=== PATIENT | male | born 1960 | race Caucasian/White ===

== ENCOUNTER 2024-03-17 01:02 | Inpatient (IN) | payer MEDICAID, SELFPAY ==
[2024-03-17] VITALS (11 sets, daily range): BP systolic 105–162; BP diastolic 74–98; PULSE 74–98; RESP 12–91; TEMP 36.1–36.7; O2SAT 93–97; BMI 35.9
--- NOTE | 2024-03-17 01:46 | PC.NURSE ---
patient brought in today by ambulance for near syncopal episode that occurred around 1230 states she witnessed the syncopal episode. states patient sat up and just stared blankly for 1 minute and fell back onto bed.
[2024-03-17 03:01] LABS: Basophils # (Auto) 0.1 Thou/mm3 (0.0-0.2); Basophils % (Auto) 1 % (0-2.5); Eosinophils # (Auto) 0.1 Thou/mm3 (0.0-0.5); Eosinophils % (Auto) 1 % (0-10); Hematocrit 47.6 % (41.0-53.0); Hemoglobin 16.1 g/dL (13.5-16.0); Immature Granulocytes % (Auto) 0 % (0-0); Immature Granulocytes Auto 0.02 Thou/mm3 (0.00-0.00); Lymphocytes # (Auto) 1.6 Thou/mm3 (1.0-4.8); Lymphocytes % (Auto) 21 % (10-50); Mean Corpuscular HGB Conc 33.8 g/dl (31.0-37.0); Mean Corpuscular Volume 83 fL (80-100); Monocytes # (Auto) 0.9 Thou/mm3 (0.0-0.8); Monocytes % (Auto) 12 % (0-12); Neutrophils % (Auto) 65 % (37-80); Nucleated Red Blood Cell % 0 /100 WBC (0); Platelet Count 220 Thou/mm3 (140-440); RDW Standard Deviation 43.3 fL (35.1-43.9); Red Blood Count 5.74 Miln/mm3 (4.50-5.90); White Blood Count 7.7 Thou/mm3 (3.8-10.6)
[2024-03-17 03:24] LABS: B-Type Natriuretic Peptide < 20 pg/mL (0-100)
[2024-03-17 03:25] LABS: Alanine Aminotransferase 14 U/L (10-49); Albumin, Serum 4.9 gm/dL (3.4-4.8); Albumin/Globulin Ratio 1.6 (1.2-2.2); Alkaline Phosphatase 106 U/L (46-116); Anion Gap 10 (7-16); Aspartate Amino Transferase 14 U/L (0-34); BUN/Creatinine Ratio 32 Ratio (12-20); Bilirubin,Total 0.5 mg/dL (0.3-1.2); Blood Urea Nitrogen 79 mg/dL (9-23); Calcium 10.1 mg/dL (8.3-10.6); Calcium (Corrected) 10.1 mg/dL (8.5-10.1); Carbon Dioxide 33.4 mMol/L (20.0-31.0); Chloride 81 mMol/L (98-107); Creatinine (Component) 2.5 mg/dL (0.6-1.3); Estimated Creatinine Clearance 42.8 mL/min (>60); Globulin 3.1 gm/dL (2.3-3.5); Glucose 333 mg/dL (74-106); Osmolality,Calculated 286 (275-295); Potassium 3.5 mMol/L (3.4-5.1); Sodium 124 mMol/L (136-145); Troponin I < 0.020 ng/mL (0.0-0.045); eGFR 28 See Note
--- NOTE | 2024-03-17 04:35 | EDNOTE_ITS ---
ED Syncope RME/HPI General Chief Complaint: Syncope / Near Syncope Stated Complaint: SYNCOPAL EPISODE Time Seen by Provider: 03/17/24 02:36 Arrival date/time: 03/17/24 01:02 Limitations: no limitations RME / HPI RME / HPI narrative: Dr. Calero's Main ED Evaluation: 63yo male with pmhx HTN, HLD, aFib on Eliquis, DM, CHF BIBA from home presents to the ED for a chief complaint of near syncope while sitting on the bed. Family () states the patient was staring off while he was sitting on his bed, reporting it lasted for 5-10 minutes and he passed out. Patient states he's been having bloody diarrhea for the last 4 days. He denies any fever, chills, UTI symptoms, nausea, vomiting or any other associated symptoms. No known allergies. He saw his PCP 2-3 weeks ago and had postive blood in his stool and needed a colonscopy . Related Data Allergies Allergy/AdvReac Type Severity Reaction Status Date / Time No Known Allergies Allergy Verified 10/12/23 12:58 Review of Systems Review of Systems Systems Reviewed: All systems reviewed, normal except as documented ED Exam General Limitations: Present no limitations General appearance: Present alert Head Head exam: Present atraumatic Eye Eye exam: Present normal appearance, PERRL and EOMI ENT ENT exam: Present normal exam, normal oropharynx, mucous membranes dry and other (tongue is dry) Neck Neck exam: Present normal inspection, full ROM and trachea midline Chest Chest inspection: Present normal inspection and symmetric chest wall rise Respiratory Respiratory exam: Present normal lung sounds bilaterally Cardiovascular Cardiovascular exam: Present regular rate, normal rhythm and normal heart sounds Abdominal Exam Abdominal exam: Present soft and normal bowel sounds; Absent rebound or mass Rectal Exam Rectal exam: Present heme (+) stool (very mildly, not bright red blood, has light brown watery stool); Absent mass Extremities Exam Extremities exam: Present normal inspection, full ROM and normal capillary refill Back Exam Back exam: Present normal inspection and full ROM Neurological Exam Neurological exam: Present alert, oriented X3 and CN II-XII intact Psychiatric Psychiatric exam: Present normal affect and normal mood Skin Skin exam: Present warm, dry, intact, normal color and other (normal cap refill) Course Course Course Narrative: 0449: Spoke with the patient's on the phone, who states the patient did pass out today and fell back on the bed. She denies any head strikes. She states this is not the first time he passed out, reporting it's been happening for the last month and a half. She states the patient has had bloody stools, dizziness, and generalized weakness for the last 4 days. She endorses the patient recently had positive outpatient hemo-occult labs and that's why he's supposed to have a colonoscopy done. Quality Measures none Orders Category Date Time Status Admit to Inpatient Status Routine Admission 03/17/24 05:57 Active Patient Condition Routine Admission 03/17/24 05:57 Ordered Bedside Blood Glucose ACHS Care 03/17/24 06:18 Active Bedside COVID-19 Antigen Test NOW Care 03/17/24 04:37 Active Bedside Influenza A&B Antigen Test NOW Care 03/17/24 04:37 Completed COVID-19 Screening Questionnaire NOW Care 03/17/24 05:41 Active Continuous Pulse Oximetry NOW Care 03/17/24 06:07 Active EKG (ED ONLY) *Do not use* NOW Care 03/17/24 02:13 Completed Miscellaneous Nursing Order NOW Care 03/17/24 06:18 Active Notify provider NEEDED Care 03/17/24 05:57 Active Obtain weight X1 Care 03/17/24 06:07 Active Sequential Compression Device QSHIFT Care 03/17/24 06:07 Active Vital Signs, Non-Routine Q4H Care 03/17/24 06:15 Ordered Vital Signs, Non-Routine Q4H Care 03/17/24 10:15 Ordered Vital Signs, Non-Routine Q4H Care 03/17/24 14:15 Ordered Vital Signs, Non-Routine Q4H Care 03/17/24 18:15 Ordered Vital Signs, Non-Routine Q4H Care 03/17/24 22:15 Ordered Consult to Gastroenterology Stat Cons 03/17/24 06:20 Ordered EKG (ED Only) Stat Exams 03/17/24 02:12 Ordered EKG (ED Only) Stat Exams 03/17/24 04:46 Stop Req A1C [Glycohemoglobin w (eAG)] Stat Lab 03/17/24 06:15 Ordered B-Type Natriuretic Peptide Stat Lab 03/17/24 02:41 Completed CBC AM DRAW Lab 03/17/24 06:15 Ordered CBC AM DRAW Lab 03/18/24 06:15 Ordered CBC AM DRAW Lab 03/19/24 06:15 Ordered CBC Stat Lab 03/17/24 02:41 Completed CMP [Comprehensive Metabolic Panel] AM DRAW Lab 03/17/24 06:10 Ordered CMP [Comprehensive Metabolic Panel] AM DRAW Lab 03/18/24 06:15 Ordered CMP [Comprehensive Metabolic Panel] AM DRAW Lab 03/19/24 06:15 Ordered Comprehensive Metabolic Panel Stat Lab 03/17/24 02:41 Completed Lipid Panel Routine Lab 03/17/24 06:10 Ordered Magnesium AM DRAW Lab 03/17/24 06:10 Ordered Magnesium AM DRAW Lab 03/18/24 06:15 Ordered Magnesium AM DRAW Lab 03/19/24 06:15 Ordered Partial Thromboplastin Time AM DRAW Lab 03/17/24 06:15 Ordered Partial Thromboplastin Time AM DRAW Lab 03/18/24 06:15 Ordered Phosphorous AM DRAW Lab 03/17/24 06:10 Ordered Phosphorous AM DRAW Lab 03/18/24 06:15 Ordered Phosphorous AM DRAW Lab 03/19/24 06:15 Ordered Prothrombin Time with INR AM DRAW Lab 03/17/24 06:15 Ordered Prothrombin Time with INR AM DRAW Lab 03/18/24 06:15 Ordered Prothrombin Time with INR AM DRAW Lab 03/19/24 06:15 Ordered Thyroid Stimulating Hormone AM DRAW Lab 03/17/24 06:10 Ordered Thyroid Stimulating Hormone AM DRAW Lab 03/18/24 06:15 Ordered Troponin I Stat Lab 03/17/24 02:41 Completed Urinalysis Stat Lab 03/17/24 02:13 Ordered Acetaminophen Tab [Tylenol Tab] Med 03/17/24 06:07 Active 650 mg PO Q6H PRN Atorvastatin Calcium [Lipitor] Med 03/17/24 09:00 Active 40 mg PO QDAY Dextrose 50% Syr [D50w Syringe Abboject] Med 03/17/24 06:18 Active 25 ml IV Q15MIN PRN Dextrose 50% Syr [D50w Syringe Abboject] Med 03/17/24 06:18 Active 50 ml IV Q15MIN PRN Docusate Sod [Colace] Med 03/17/24 09:00 Active 100 mg PO BID Ezetimibe [Zetia] Med 03/17/24 09:00 Active 10 mg PO QDAY Glucagon Inj Med 03/17/24 06:18 Active 1 mg IM Q15MIN PRN HYDROcodone*/APAP 5/325 [[place] 5/325] Med 03/17/24 06:07 Active 1 tab PO Q4HR PRN INSULIN LISPRO (AdmeLOG) [HumaLOG] Med 03/17/24 07:30 Active See Protocol SC ACHS Ondansetron Inj [Zofran Inj] Med 03/17/24 06:07 Active 4 mg IV Q6H PRN Pantoprazole [Protonix] Med 03/17/24 09:00 Active 40 mg PO QDAY Patient's Own Med [Patient's Own Medication] Med 03/17/24 06:15 Discontinued 20 ea PO X1 ONE Senna [Senokot] Med 03/17/24 06:07 Active 1 tab PO QDAY PRN Sodium Chloride 0.9% 1000 ml [Ns] 1,000 ml Med 03/17/24 04:37 Discontinued IV 999 mls/hr Code Status Routine Oth 03/17/24 05:57 Ordered Oxygen Delivery NOW RT 03/17/24 06:08 Active Vital Signs Vital signs: Vital Signs Temperature 98.1 F 03/17/24 01:32 Pulse Rate 74 03/17/24 01:32 Respiratory Rate 18 03/17/24 01:32 Blood Pressure 142/74 H 03/17/24 01:32 Pulse Oximetry (%) 97 03/17/24 01:32 Oxygen Delivery Method Room Air 03/17/24 01:32 Syncope Patient data External records reviewed:: [facility] previous records (Per chart review, patient has no relevant previous ED visits.) Clinical information provided by:: patient and family Social determinants that could affect healthcare access:: none Patient has the following chronic illnesses:: HTN, DM, HLD, aFib, CHF How is presenting disease/condition affected by chronic disease/condition?: uneffected by Evaluation data The following diagnostics were reviewed and interpreted by me:: lab results and EKG tracing(s) Lab and/or radiology exams considered but not ordered:: none Interpretation Summary: CBC is normal, Sodium is low at 124, Creatinine is elevated at 2.5, Glucose is elevated at 333, troponin is normal, BNP is normal, according to my interpretation. EKG done at 0224, aFib, rate of 90, ST-T wave changes in V5 and V6, QTc: 413, according to my interpretation. Medications / Prescriptions Medications or Prescriptions considered but not ordered:: none Medication administrations:: Medication Administration History Acetaminophen (Acetaminophen 325 Mg Tablet) 650 mg PO Q6H PRN PRN Reason: Fever >101.5 or pain 1-3 Stop: 04/16/24 06:06 Hydrocodone Bitart/Acetaminophen (Hydrocodone/Apap 5/325 Tablet) 1 tab PO Q4HR PRN PRN Reason: PAIN SCALE 4-6 (Moderate Stop: 03/22/24 06:06 Atorvastatin Calcium (Atorvastatin Calcium 10 Mg Tablet) 40 mg PO QDAY [facility] Stop: 04/16/24 08:59 Dextrose (Dextrose 50%-Water Inj 50 Ml Syringe) 25 ml IV Q15MIN PRN PRN Reason: BG 50-70 responsive npo pt Stop: 04/16/24 06:17 Dextrose (Dextrose 50%-Water Inj 50 Ml Syringe) 50 ml IV Q15MIN PRN PRN Reason: BG <50 OR BG <70 & pt unresponsive Stop: 04/16/24 06:17 Docusate Sodium (Docusate Sod 100 Mg Capsule) 100 mg PO BID [facility]; Protocol Stop: 04/16/24 08:59 Ezetimibe (Ezetimibe 10 Mg Tablet) 10 mg PO QDAY [facility] Stop: 04/16/24 08:59 Glucagon (Glucagon Inj 1 Mg Vial) 1 mg IM Q15MIN PRN PRN Reason: BG <70, and no IV access Insulin Human Lispro (Insulin Lispro (Admelog) 1 Unit/0.01 Ml Unit) 0 unit SC [facility]; Protocol Stop: 04/16/24 07:29 Ondansetron HCl (Ondansetron Inj 2 Mg/Ml Inj 2 Ml) 4 mg IV Q6H PRN; Protocol PRN Reason: NAUSEA OR VOMITING Stop: 04/16/24 06:06 Pantoprazole Sodium (Pantoprazole 40 Mg Tablet) 40 mg PO QDAY [facility] Stop: 04/16/24 08:59 Sennosides (Senna Tablet) 1 tab PO QDAY PRN; Protocol PRN Reason: constipation Stop: 04/16/24 06:06 Discontinued Medications Sodium Chloride (Ns) 1,000 mls @ 999 mls/hr IV .Q1H1M ONE Stop: 03/17/24 05:37 Last Admin: 03/17/24 04:39 Dose: 999 mls/hr Documented By: EF Patient Own Medication (Patient's Own Med 1 Ea Ea) 20 ea PO X1 ONE Stop: 03/17/24 06:16 see above Consultations Consultation(s) initiated? (list below): Yes Consultation #1 (Physician, Specialty, Details): Discussed case with [the resident physician, attending Dr. Elias] from Hospitalist service regarding admission. Discussed patients ED course, exam findings, labs, and radiology results. The Hospitalist [agrees] to accept the patient for admission. States they will consult with Dr. Romeo. Time: 05:06 Diagnosis Syncope Differential Diagnosis: vasovagal syncope, dehydration and other (electrolyte abnormality, lower GI bleed) Most likely diagnosis given after review of the tests above:: see below Admission Indicated Admission indicated?: indicated Explain why admission is indicated or not indicated:: Syncope with low GI bleed, new syncope while on blood thinner. Discussed with the medicine resident, and they will consult Dr. Romeo. Admission Request Was there a request for admission?: Yes Admission Attestation Admission request attestation: Discussed case with [] from Hospitalist service regarding admission. Discussed patients ED course, exam findings, labs, and radiology results. The Hospitalist [agrees,declines] to accept the patient for admission. Disposition Plan Disposition Plan: Admit Discharge Plan Prescriptions/Referrals Referrals: Chelsea Hirsch FNP [Primary Care Provider] - In 1 week Problem List Clinical Impression: Syncope, Acute lower GI hemorrhage Patient/Caregiver Discharge Instructions Print Language: Sami
[2024-03-17] MEDS: SODIUM CHLORIDE 0.9% 1000 ML 1,000 ML 999 ML IV (04:39)
[2024-03-17 06:44] LABS: Basophils % (Auto) 1 % (0-2.5); Eosinophils # (Auto) 0.1 Thou/mm3 (0.0-0.5); Eosinophils % (Auto) 1 % (0-10); Hematocrit 45.5 % (41.0-53.0); Hemoglobin 15.4 g/dL (13.5-16.0); Immature Granulocytes % (Auto) 0 % (0-0); Immature Granulocytes Auto 0.02 Thou/mm3 (0.00-0.00); Lymphocytes # (Auto) 1.9 Thou/mm3 (1.0-4.8); Lymphocytes % (Auto) 26 % (10-50); Mean Corpuscular HGB Conc 33.8 g/dl (31.0-37.0); Mean Corpuscular Hemoglobin 27.7 pg (25.0-35.0); Mean Corpuscular Volume 82 fL (80-100); Monocytes % (Auto) 14 % (0-12); Neutrophils # (Auto) 4.5 Thou/mm3 (1.8-7.7); Neutrophils % (Auto) 59 % (37-80); Nucleated Red Blood Cell % 0 /100 WBC (0); Platelet Count 245 Thou/mm3 (140-440); RDW Standard Deviation 43.2 fL (35.1-43.9); Red Blood Count 5.55 Miln/mm3 (4.50-5.90); White Blood Count 7.6 Thou/mm3 (3.8-10.6)
[2024-03-17 07:09] LABS: Partial Thromboplastin Time 27.3 Seconds (22.0-36.0); Prothrombin Time 10.9 Seconds (9.0-12.2)
[2024-03-17 07:18] LABS: Alanine Aminotransferase 14 U/L (10-49); Albumin, Serum 4.6 gm/dL (3.4-4.8); Albumin/Globulin Ratio 1.6 (1.2-2.2); Alkaline Phosphatase 99 U/L (46-116); Anion Gap 8 (7-16); Aspartate Amino Transferase < 8 U/L (0-34); BUN/Creatinine Ratio 36 Ratio (12-20); Bilirubin,Total 0.5 mg/dL (0.3-1.2); Blood Urea Nitrogen 83 mg/dL (9-23); Calcium 9.6 mg/dL (8.3-10.6); Calcium (Corrected) 9.6 mg/dL (8.5-10.1); Carbon Dioxide 35.1 mMol/L (20.0-31.0); Cardiac Risk Estimate 5.3 RATIO (4.0-6.7); Chloride 83 mMol/L (98-107); Cholesterol 144 mg/dL (132-200); Creatinine (Component) 2.3 mg/dL (0.6-1.3); Estimated Creatinine Clearance 46.6 mL/min (>60); Globulin 2.9 gm/dL (2.3-3.5); Glucose 298 mg/dL (74-106); HDL Cholesterol 27 mg/dL (40-60); LDL Cholesterol,Calculated 57 mg/dL (0-130); Magnesium 2.6 mg/dL (1.6-2.6); Osmolality,Calculated 289 (275-295); Phosphorous 4.5 mg/dL (2.4-5.1); Sodium 126 mMol/L (136-145); Thyroid Stimulating Hormone 0.99 uIU/mL (0.55-4.78); Total Protein 7.5 gm/dL (5.7-8.2); Triglycerides 298 mg/dL (30-150); eGFR 31 See Note
--- NOTE | 2024-03-17 07:25 | PD.RESHP ---
Documentation for date of: 03/17/24 HPI History of Present Illness History of present illness: Sai is a 63 y/o male with PMHx HTN, hyperlipidemia, A-fib (on Eliquis), rxm-unxrvby-lwxcpecno diabetes mellitus, CHF who was brought in for an evaluation of syncope, and bloody diarrhea, onset past 4 days, syncopal episode was a day and a half ago and was unremembered. Patient's had said that patient has been experiencing some bloody stools for a while now, and was supposed to get an outpatient colonoscopy. However 4 days ago patient started to experience bloody diarrhea as well. Patient also said that he had episode of nonbloody vomiting. When patient was asked upon the syncopal episode, he does not remember what happened, but says that he has been feeling more weak lately, but with no associated blurry vision headache. Says that he gets more dizzy upon while getting up however he is pretty much wheelchair bound for about a year now due to his spinal stenosis. He also says that he has new kidney disease as well. Denies any chest pain, shortness of breath, constipation or other further symptoms. ED course: Patient arrived to the ED with unremarkable vitals. Patient was worked up and was found to have a blood sugar of 333, sodium of 124, potassium 3.5, chloride of 81, bicarb of 33, BUN/creatinine of 79 and 2.5, hemoglobin of 16.1. FOBT was done on patient and was positive. Patient was given 1 L bolus and medicine was consulted and patient was admitted to floors for further evaluation of syncope and GI bleed. Past medical history: As above Surgeries: Foot surgery Allergies: No known allergies Meds: Lipitor, Eliquis, aspirin, and Eztemibe, Kerendia, Coreg, Social history: Has smoking history, drinks occasionally. Lives with Review of Systems Review of Systems Narrative Review of Systems: 12 point ROS reviewed and stabilized negative unless stated in the HPI Exam Vital Signs Temp Pulse Resp BP Pulse Ox O2 Del Method 97.8 F 88 20 130/82 97 Room Air 03/17/24 04:03 03/17/24 07:19 03/17/24 07:19 03/17/24 06:03 03/17/24 06:03 03/17/24 06:03 Narrative Exam General: AAOx3, NAD, obese male HEENT: Dry mucous membranes, conjunctiva clear, EOMI, PERRLA, Cardiovascular: S1, S2, radial pulses +2 bilat, RRR Pulmonary: CTAB bilat no cough, no wheezing GI: No tenderness to light or deep palpitation, no guarding, rigidity, rebound tenderness or distension Extremities: No presence of trace or pitting edema in lower extremities bilaterally, dorsalis pedis pulses +2 bilaterally, Neuro: AAOx3, no focal motor or sensory deficits in the UE or LE bilat Psych: Good judgement, thought and behavior. Cooperative Results: Labs 03/17/24 06:35 03/17/24 06:35 Labs: Short CBC 03/17/24 03/17/24 Range/Units 02:41 06:35 WBC 7.7 7.6 (3.8-10.6) Thou/mm3 Hgb 16.1 H 15.4 (13.5-16.0) g/dL Hct 47.6 45.5 (41.0-53.0) % Plt Count 220 245 (140-440) Thou/mm3 BMP 03/17/24 03/17/24 02:41 06:35 Sodium 124 L 126 L Potassium 3.5 3.0 L D Chloride 81 L 83 L Carbon Dioxide 33.4 H 35.1 H BUN 79 H 83 H Creatinine 2.5 H 2.3 H Glucose 333 H 298 H Calcium 10.1 9.6 Cardiac Enzymes 03/17/24 Range/Units 02:41 Troponin I < 0.020 (0.0-0.045) ng/mL Liver Function 03/17/24 03/17/24 Range/Units 02:41 06:35 Total Bilirubin 0.5 0.5 (0.3-1.2) mg/dL AST 14 < 8 (0-34) U/L ALT 14 14 (10-49) U/L Alkaline Phosphatase 106 99 (46-116) U/L Albumin 4.9 H 4.6 (3.4-4.8) gm/dL Quality Measures Quality Measures none Medications Home Medications and Allergies Allergies Allergy/AdvReac Type Severity Reaction Status Date / Time No Known Allergies Allergy Verified 10/12/23 12:58 Visit Medications Acetaminophen (Acetaminophen 325 Mg Tablet) 650 mg PO Q6H PRN PRN Reason: Fever >101.5 or pain 1-3 Stop: 04/16/24 06:06 Hydrocodone Bitart/Acetaminophen (Hydrocodone/Apap 5/325 Tablet) 1 tab PO Q4HR PRN PRN Reason: PAIN SCALE 4-6 (Moderate Stop: 03/22/24 06:06 Atorvastatin Calcium (Atorvastatin Calcium 10 Mg Tablet) 40 mg PO QDAY [facility] Stop: 04/16/24 08:59 Dextrose (Dextrose 50%-Water Inj 50 Ml Syringe) 25 ml IV Q15MIN PRN PRN Reason: BG 50-70 responsive npo pt Stop: 04/16/24 06:17 Dextrose (Dextrose 50%-Water Inj 50 Ml Syringe) 50 ml IV Q15MIN PRN PRN Reason: BG <50 OR BG <70 & pt unresponsive Stop: 04/16/24 06:17 Docusate Sodium (Docusate Sod 100 Mg Capsule) 100 mg PO BID [facility]; Protocol Stop: 04/16/24 08:59 Ezetimibe (Ezetimibe 10 Mg Tablet) 10 mg PO QDAY [facility] Stop: 04/16/24 08:59 Glucagon (Glucagon Inj 1 Mg Vial) 1 mg IM Q15MIN PRN PRN Reason: BG <70, and no IV access Insulin Human Lispro (Insulin Lispro (Admelog) 1 Unit/0.01 Ml Unit) 0 unit SC [facility]; Protocol Stop: 04/16/24 07:29 Ondansetron HCl (Ondansetron Inj 2 Mg/Ml Inj 2 Ml) 4 mg IV Q6H PRN; Protocol PRN Reason: NAUSEA OR VOMITING Stop: 04/16/24 06:06 Pantoprazole Sodium (Pantoprazole 40 Mg Tablet) 40 mg PO QDAY [facility] Stop: 04/16/24 08:59 Sennosides (Senna Tablet) 1 tab PO QDAY PRN; Protocol PRN Reason: constipation Stop: 04/16/24 06:06 Discontinued Medications Sodium Chloride (Ns) 1,000 mls @ 999 mls/hr IV .Q1H1M ONE Stop: 03/17/24 05:37 Last Admin: 03/17/24 04:39 Dose: 999 mls/hr Patient Own Medication (Patient's Own Med 1 Ea Ea) 20 ea PO X1 ONE Stop: 03/17/24 06:16 Assessment & Plan Plan Assessment Sai is a 63 y/o male with PMHx HTN, hyperlipidemia, A-fib (on Eliquis), azt-bybdmwc-uwzlxbnnz diabetes mellitus, CHF who is admitted for syncope and GI bleed. #Syncope Patient does not recall having syncopal episode Could be related due to dizziness, autonomic component Could be due to hypovolemia Plan: ? Follow-up orthostatic vitals ? Consider neurology consult ? Bedrest ?Consider PT referral #GI bleed Hemoglobin of ~16 Has been having bloody bowel movements for some time now, was supposed to get outpatient colonoscopy Patient's anemia at this time however recently had syncope may be related Will further workup May be infectious may be hemorrhoids Plan: ? GI consulted, appreciate recs ?Transfusion protocol below 7 ? Protonix daily ? SCDs #FAUZIA Likely prerenal due to GI losses Status post 1 L bolus in ER Plan: ?Consider starting fluids ?Avoid nephrotoxic agents ?Renally dose medicines #Electrolyte abnormalities #Hyponatremia #Hypochloremia #Metabolic alkalosis Secondary to GI losses Patient was given 1 L bolus in the ER Plan: ?Consider starting fluids ?Replete as needed #Hx of A-fib On Eliquis CHADVASC of 3 Plan: ? Holding Eliquis in setting of GI bleed ? Consider cardiology consult #History of hypertension #History of hyperlipidemia Plan: ? Awaiting med rec ?Resumed home Ezetimibe and Lipitor #History of jyh-nawzytt-dfoqqrikf diabetes mellitus Plan: ? A1c ? SSI #Health Maintenance Disposition: Telemetry DVT prophylaxis: SCDs GI prophylaxis: Protonix Diet: Carb consistent CODE STATUS: Full Patient seen and care discussed with my attending physician, Dr. Curt Rodriguez, PGY-1
[2024-03-17] MEDS: HYDROcodone/APAP 5/325 TABLET 1 TAB PO ×3 (07:35→20:50)
[2024-03-17 07:37] LABS: Glucose Estimated Average 306 mg/dL (80-131); Hemoglobin A1C 12.3 % Hgb (4.8-6.0)
[2024-03-17] MEDS: PANTOPRAZOLE 40 MG TABLET PO (09:16)
[2024-03-17] MEDS: EZETIMIBE 10 MG TABLET PO (11:21)
[2024-03-17] MEDS: ATORVASTATIN CALCIUM 20 MG TABLET 40 MG PO (11:21)
[2024-03-17] MEDS: ONDANSETRON INJ 2 MG/ML INJ 2 ML 4 MG IV (11:21)
[2024-03-17] MEDS: POTASSIUM CHLORIDE 20 mEq TABCR 40 MEQ PO ×2 (12:29→16:14)
[2024-03-17] MEDS: INSULIN GLARGINE (Lantus) 5 UNIT/0.05 ML (PER 5 UNITS) 15 UNIT SC (12:43)
[2024-03-17] MEDS: INSULIN LISPRO (AdmeLOG) 1 UNIT/0.01 ML UNIT SC ×3 (12:46→20:53)
[2024-03-17] MEDS: KERENDIA 20 MG PO (12:51)
--- NOTE | 2024-03-17 13:36 | PC.CC ---
Patient is a 63 year-old male who presents to the hospital for GI Bleed. Patt GOSS made ejny-ty-aucs contact with patient. ASW introduced self, role, and reason for visit. Patient appeared alert and oriented to self, location, and situation. Patient was pleasant and engaged in initial assessment. Patient confirmed information on demographics and reports he lives with his , Lillian Ortiz . Patient stated that should something happen and is unable to make his own decisions his medical decision maker is his . At home patient relys completely on his to help him with his ADLs. The patient stated, I am completely crippled. At home patient uses a wheelchair. Patient receives primary care with Chelsea Hirsch and for prescription medication he uses [facility]. Upon discharge patient plans to return back home with his . building services supervisor to follow up with any discharge needs.
--- NOTE | 2024-03-17 13:52 | ECHO_ITS ---
Transthoracic Echo Report Ht (in): 74 Wt (lb): 280 Exam Location: [facility] Status: Inpatient Civil Preparedness Training Officer: Lin Maldonado Indications: Procedure Performed: BP: 146 / 80 HR: 85 Technical Quality: Fair MEASUREMENTS (Male / Female) Normal Values 2D ECHO LV Diastolic Diameter PLAX 4.5 cm 4.2 - 5.9 / 3.9 - 5.3 cm LV Systolic Diameter PLAX 3.1 cm IVS Diastolic Thickness 1.1 cm 0.6 - 1.0 / 0.6 - 0.9 cm LVPW Diastolic Thickness 1.1 cm 0.6 - 1.0 / 0.6 - 0.9 cm LV Relative Wall Thickness 0.5 LVOT Diameter 2.2 cm LA Volume Index 30.2 cm?/m? 16 - 28 cm?/m? Ascending Aorta Diameter 4.1 cm M-MODE Aortic Root Diameter MM 2.7 cm LA Systolic Diameter MM 4.8 cm LA Ao Ratio MM 1.8 AV Cusp Separation MM 2.0 cm DOPPLER AV Peak Velocity 123.0 cm/s AV Peak Gradient 6.1 mmHg AV Mean Gradient 4.0 mmHg AV Velocity Time Integral 17.7 cm LVOT Peak Velocity 81.3 cm/s LVOT Peak Gradient 2.6 mmHg LVOT Velocity Time Integral 15.3 cm LVOT Cardiac Index 1888.9 cm?/min?m? AV Area Cont Eq vti 3.3 cm? AV Area Cont Eq pk 2.5 cm? MV Peak Velocity 118.0 cm/s MV Peak Gradient 5.6 mmHg MV Mean Velocity 67.9 cm/s MV Mean Gradient 2.0 mmHg MV Area PHT 4.0 cm? Mitral E Point Velocity 82.5 cm/s Mitral A Point Velocity 2.4 cm/s Mitral E to A Ratio 34.0 LV E' Lateral Velocity 10.3 cm/s Mitral E to LV E' Lateral Ratio 8.0 LV E' Septal Velocity 9.4 cm/s Mitral E to LV E' Septal Ratio 8.8 FINDINGS Left Ventricle Normal left ventricular size, systolic function with no obvious regional wall motion abnormalities. Mild LVH. The ejection fraction is visually estimated at 60-65%. Right Ventricle The right ventricle is normal in size and systolic function. Left Atrium The left atrium is normal by two-dimensional, color flow and Doppler imaging with no structural abnormalities, no thrombus formation present. Right Atrium The right atrium is normal by two-dimensional imaging, color flow and Doppler imaging with no struct ural abnormalities, no thrombus formation present. Atrial Septum The interatrial septum appears normal with no evidence of a shunt. Aorta The aorta is normal by two-dimensional, color flow and Doppler interrogation. Mitral Valve The mitral valve is normal by two-dimensional, color flow and Doppler interrogation. There is no sig nificant mitral valve regurgitation. Aortic Valve The aortic valve is trileaflet. Mild sclerosis without stenosis. There is no significant aortic valv e regurgitation. Tricuspid Valve The tricuspid valve is normal by two-dimensional, color flow and Doppler interrogation. There is tra ce tricuspid valve regurgitation. Pulmonic Valve There is no significant pulmonic valve regurgitation. Vessels The pulmonary artery appears normal. The inferior vena cava pulmonary and hepatic veins appear mary l. Pericardium The pericardium is normal by two-dimensional imaging. There is no significant pericardial effusion. CONCLUSIONS Normal LV size and function. Mild LVH. Estimated EF 60-65% Normal RV size and function Mild AV sclerosis without stenosis. Trace TR. Mary Brown (Electronically Signed) Final Date: 20 March 2024 15:23
[2024-03-17] MEDS: SODIUM CHLORIDE 0.9% 500 ML 500 ML 999 ML IV (16:15)
[2024-03-17 16:40] LABS: Collection Type, Urine Clean Catch
[2024-03-17 17:02] LABS: Bilirubin,Urine Negative (Negative); Blood,Urine Negative (Negative); Clarity,Urine Clear (Clear/Hazy); Color,Urine Lt-Yellow (Lt Yel-Yel); Glucose, Urine 4+ (Negative); Ketones,Urine Negative (Negative); Leukocyte Esterase,Urine Negative (Negative); Nitrite,Urine Negative (Negative); Protein,Urine Trace (Neg - Trace); RBC,Urine 1 /hpf (0-3); Specific Gravity,Urine 1.023 (1.001-1.035); Squamous Epithelial Cell,Urine 1 /hpf (0-5); Urobilinogen,Urine Negative mg/dL (0.0-1.0); WBC,Urine < 1 /hpf (0-5)
--- NOTE | 2024-03-17 17:18 | ESCONSULT_ITS ---
HPI Data of Consult Requesting Physician: Marcus Elias MD Primary Care Provider: ZACKERY Negrete Consult Narrative Reason for consult: Syncope bloody stools History of present illness: 63 years old male evaluated at the request of the ER physician and the internal medicine team for the last few days has been having bloody stools Rectal examination in the emergency room was Hemoccult positive Patient was brought in by ambulance because he had a near syncope at home Patient does have a history of hypertension hyperlipidemia atrial fibrillation diabetes mellitus and congestive heart failure And currently on blood thinners cc:: cc: Marcus Elias MD Review of Systems Review of Systems Systems Reviewed: All systems reviewed, normal except as documented Past Medical History Surgical History OTHER SURGICAL HX: As in the history of present illness Meds Home Medications and Allergies Allergies Allergy/AdvReac Type Severity Reaction Status Date / Time No Known Allergies Allergy Verified 10/12/23 12:58 Exam Vital Signs Temp Pulse Resp BP Pulse Ox O2 Del Method 98.0 F 88 19 162/89 H 94 L Room Air 03/17/24 15:24 03/17/24 15:24 03/17/24 15:24 03/17/24 15:24 03/17/24 15:24 03/17/24 15:24 Constitutional Comments: Alert oriented Routine Respiratory Exam Comments: Normal to auscultation Routine Abdominal Exam Comments: Soft nontender Results Labs 03/17/24 06:35 03/17/24 06:35 Labs: Short CBC 03/17/24 03/17/24 Range/Units 02:41 06:35 WBC 7.7 7.6 (3.8-10.6) Thou/mm3 Hgb 16.1 H 15.4 (13.5-16.0) g/dL Hct 47.6 45.5 (41.0-53.0) % Plt Count 220 245 (140-440) Thou/mm3 BMP 03/17/24 03/17/24 02:41 06:35 Sodium 124 L 126 L Potassium 3.5 3.0 L D Chloride 81 L 83 L Carbon Dioxide 33.4 H 35.1 H BUN 79 H 83 H Creatinine 2.5 H 2.3 H Glucose 333 H 298 H Calcium 10.1 9.6 Cardiac Enzymes 03/17/24 Range/Units 02:41 Troponin I < 0.020 (0.0-0.045) ng/mL Liver Function 03/17/24 03/17/24 Range/Units 02:41 06:35 Total Bilirubin 0.5 0.5 (0.3-1.2) mg/dL AST 14 < 8 (0-34) U/L ALT 14 14 (10-49) U/L Alkaline Phosphatase 106 99 (46-116) U/L Albumin 4.9 H 4.6 (3.4-4.8) gm/dL Urine 03/17/24 Range/Units 16:14 Urine Color Lt-Yellow (Lt Yel-Yel) Urine Clarity Clear (Clear/Hazy) Urine pH 6.0 (5.0-7.0) Ur Specific [place] 1.023 (1.001-1.035) Urine Protein Trace (Neg - Trace) Urine Glucose (UA) 4+ A (Negative) Assessment and Plan Additional Assessment & Plan Additional Plan: # Hematochezia Plan Stool culture and sensitivity and stool C. difficile Clear liquid diet GoLytely prep Consent obtained for fiberoptic colonoscopy with possible biopsy possible therapeutic intervention under intravenous moderate sedation Recommend CT scan of the abdomen pelvis with contrast Will follow the patient Other medical problems include # Essential hypertension # Hyperlipidemia # Chronic atrial fibrillation # Diabetes mellitus type 2 # Congestive heart failure Thank you very much for the opportunity to participate in the care of this patient
[2024-03-17] MEDS: INSULIN LISPRO (AdmeLOG) 1 UNIT/0.01 ML UNIT 5 UNIT SC (17:27)
--- NOTE | 2024-03-17 19:04 | PD.RESPRO ---
Documentation for date of: 03/17/24 Subjective Subjective Interval history: Patient was interviewed and examined at the bedside this morning. He reported having a rough time. He reported that he has been having amarilys red blood per rectum. Exam Vital Signs Temp Pulse Resp BP Pulse Ox O2 Del Method 98.0 F 88 19 162/89 H 94 L Room Air 03/17/24 15:24 03/17/24 15:24 03/17/24 15:24 03/17/24 15:24 03/17/24 15:24 03/17/24 15:24 Narrative Exam General: No acute distress, Alert and Oriented x 3 HEENT: Mildly dry mucous membranes, oropharynx clear Neck: Supple, No masses, No JVD CVS: S1S2 Regular rate and rhythm, No murmurs, rubs or gallops Lungs: Clear to auscultation with no accessory use, no wheeze no rhonchi Abd: Soft, NT/ND, +BS, no organomegaly Ext: No edema, warm and well perfused Skin: No rash Psych: Appropriate mood and affect Objective Labs 03/20/24 08:35 03/20/24 08:35 Labs: Laboratory Results - last 24 hr 03/17/24 03/17/24 03/17/24 02:41 06:35 16:14 WBC 7.7 7.6 RBC 5.74 5.55 Hgb 16.1 H 15.4 Hct 47.6 45.5 MCV 83 82 MCH 28.0 27.7 MCHC 33.8 33.8 RDW Std Deviation 43.3 43.2 Plt Count 220 245 Neut % (Auto) 65 59 Lymph % (Auto) 21 26 [place] % (Auto) 12 14 H Eos % (Auto) 1 1 Baso % (Auto) 1 1 Neut # (Auto) 5.0 4.5 Lymph # (Auto) 1.6 1.9 [place] # (Auto) 0.9 H 1.0 H Eos # (Auto) 0.1 0.1 Baso # (Auto) 0.1 0.0 Immature Gran # (Auto) 0.02 H 0.02 H Absolute Nucleated RBC 0.00 0.00 Immature Gran % 0 0 Nucleated RBC % 0 0 PT 10.9 INR 1.0 APTT 27.3 Sodium 124 L 126 L Potassium 3.5 3.0 L D Chloride 81 L 83 L Carbon Dioxide 33.4 H 35.1 H Anion Gap 10 8 BUN 79 H 83 H Creatinine 2.5 H 2.3 H Estim Creat Clear Calc 42.8 L 46.6 L eGFR 28 L 31 L BUN/Creatinine Ratio 32 H 36 H Glucose [address] Glu mg/dL 306 H Hemoglobin A1c 12.3 H Calculated Osmolality 286 289 Calcium 10.1 9.6 Corrected Calcium 10.1 9.6 Phosphorus 4.5 Magnesium 2.6 Total Bilirubin 0.5 0.5 AST 14 < 8 ALT 14 14 Alkaline Phosphatase 106 99 Troponin I < 0.020 B-Natriuretic Peptide < 20 Total Protein 8.0 7.5 Albumin 4.9 H 4.6 Globulin 3.1 2.9 Albumin/Globulin Ratio 1.6 1.6 Triglycerides 298 H Cholesterol 144 LDL Cholesterol, Calc 57 HDL Cholesterol 27 L Cholesterol/HDL Ratio 5.3 TSH 0.99 Ur Collection Type Clean Catch Urine Color Lt-Yellow Urine Clarity Clear Urine pH 6.0 Ur Specific [place] 1.023 Urine Protein Trace Urine Glucose (UA) 4+ A Urine Ketones Negative Urine Blood Negative Urine Nitrite Negative Urine Bilirubin Negative Urine Urobilinogen (Auto) Negative Ur Leukocyte Esterase Negative Urine RBC 1 Urine WBC < 1 Ur Squamous Epith Cells 1 Urine Bacteria None Quality Measures Quality Measures none Assessment & Plan Assessment Current Active Medications: Generic Name Dose Route Start Last Admin Trade Name Lana PRN Reason Stop Dose Admin Acetaminophen 650 mg 03/17/24 06:07 Acetaminophen 325 Mg Tablet PO 04/16/24 06:06 Q6H PRN Fever >101.5 or pain 1-3 Hydrocodone Bitart/Acetaminophen 1 tab 03/17/24 06:07 03/17/24 12:29 Hydrocodone/Apap 5/325 Tablet PO 03/22/24 06:06 1 tab Q4HR PRN Administration PAIN SCALE 4-6 (Moderate Atorvastatin Calcium 40 mg 03/17/24 10:00 03/17/24 11:21 Atorvastatin Calcium 20 Mg Tablet PO 04/16/24 08:59 40 mg QDAY JAKE Administration Dextrose 25 ml 03/17/24 06:18 Dextrose 50%-Water Inj 50 Ml Syringe IV 04/16/24 06:17 Q15MIN PRN BG 50-70 responsive npo pt Dextrose 50 ml 03/17/24 06:18 Dextrose 50%-Water Inj 50 Ml Syringe IV 04/16/24 06:17 Q15MIN PRN BG <50 OR BG <70 & pt unresponsive Docusate Sodium 100 mg 03/17/24 09:00 03/17/24 09:54 Docusate Sod 100 Mg Capsule PO 04/16/24 08:59 Not Given BID [facility] Protocol Ezetimibe 10 mg 03/17/24 09:00 03/17/24 11:21 Ezetimibe 10 Mg Tablet PO 04/16/24 08:59 10 mg QDAY JAKE Administration Glucagon 1 mg 03/17/24 06:18 Glucagon Inj 1 Mg Vial IM Q15MIN PRN BG <70, and no IV access Insulin Glargine 15 unit 03/17/24 11:00 03/17/24 12:43 Insulin Glargine (Lantus) 5 Unit/0.05 Ml (Per 5 Units) SC 04/16/24 10:59 15 unit DAILY JAKE Administration Insulin Human Lispro 0 unit 03/17/24 07:30 03/17/24 17:28 Insulin Lispro (Admelog) 1 Unit/0.01 Ml Unit SC 04/16/24 07:29 4 unit ACHS JAKE Administration Protocol Insulin Human Lispro 5 unit 03/17/24 17:30 03/17/24 17:27 Insulin Lispro (Admelog) 1 Unit/0.01 Ml Unit SC 04/16/24 17:29 5 unit TIDWM JAKE Administration Ondansetron HCl 4 mg 03/17/24 06:07 03/17/24 11:21 Ondansetron Inj 2 Mg/Ml Inj 2 Ml IV 04/16/24 06:06 4 mg Q6H PRN Administration NAUSEA OR VOMITING Protocol Pantoprazole Sodium 40 mg 03/17/24 09:00 03/17/24 09:16 Pantoprazole 40 Mg Tablet PO 04/16/24 08:59 40 mg QDAY JAKE Administration Sennosides 1 tab 03/17/24 06:07 Senna Tablet PO 04/16/24 06:06 QDAY PRN constipation Protocol Dara Sai is a 63 y/o male with PMHx HTN, hyperlipidemia, A-fib (on Eliquis), [id number] diabetes mellitus, CHF who is admitted for syncope and GI bleed. #Syncope Most likely secondary to nausea and vomiting that has been going on for past couple days leading to volume depletion, Further complicated by Lower GI bleed Patient received IV bolus fluid 1 L Plan: ? Follow-up orthostatic vitals ? Bedrest ? Consider PT referral #Lower GI bleed Hemoglobin of ~16, in the setting of volume depletion 2/2 nausea and vomiting Has been having bloody bowel movements for some time now, was supposed to get outpatient colonoscopy DDx: infectious vs hemorrhoids Plan: ?GI consulted, appreciate recs ?Transfusion protocol below 7 ?Protonix daily ? SCDs #FAUZIA Likely prerenal due to GI losses Status post 1 L bolus in ER Plan: ?Consider starting fluids ?Avoid nephrotoxic agents ?Renally dose medicines #Electrolyte abnormalities #Hyponatremia #Hypochloremia #Hypokalemia #Metabolic alkalosis Secondary to GI losses Patient was given 1 L bolus in the ER Plan: - Releted KCl ?Consider starting fluids ?Replete as needed #Hx of A-fib On Eliquis CHADVASC of 3 Plan: ? Holding Eliquis in setting of GI bleed #History of hypertension #History of hyperlipidemia Plan: ? Awaiting med rec ?Resumed home Ezetimibe and Lipitor #History of uic-pqvgyno-bmimakoij diabetes mellitus ? A1c 12.3 Plan: - Lantus 20 U daily ? SSI moderate scale ACHS - Lispro 5 units TIDWM #Health Maintenance Disposition: Telemetry DVT prophylaxis: SCDs GI prophylaxis: Protonix Diet: Carb consistent CODE STATUS: Full The patient's management plan was discussed with my attending physician DO Ernst Ariza MD, PGY2 Attending Provider Attestation/Addendum I have discussed and was present for the essential components of the history, physical examination, diagnosis, and treatment plan with the resident. I agree with the patient's care as documented by the resident and amended herein by me. Karlos Abrams DO. Although this document has been carefully reviewed, there may still be some phonetic and other typographical errors. These errors are purely grammatical due to imperfections in the software program and should not be construed in any way to compromise the substance of the patient's medical care during this visit.
[2024-03-17] MEDS: DOCUSATE SOD 100 MG CAPSULE PO (20:51)
[2024-03-17] MEDS: NA SU/NAHCO3/KC/PEG (Golytely) 4,000 ML BTL 4000 ML PO (21:39)
[2024-03-18] VITALS (22 sets, daily range): BP systolic 92–134; BP diastolic 58–90; PULSE 67–120; RESP 12–99; TEMP 36.1–36.6; O2SAT 94–99; BMI 35.9
[2024-03-18] MEDS: HYDROcodone/APAP 5/325 TABLET 1 TAB PO ×4 (02:05→20:20)
[2024-03-18 06:34] LABS: Basophils % (Auto) 1 % (0-2.5); Eosinophils # (Auto) 0.1 Thou/mm3 (0.0-0.5); Eosinophils % (Auto) 2 % (0-10); Hematocrit 44.2 % (41.0-53.0); Hemoglobin 14.8 g/dL (13.5-16.0); Immature Granulocytes % (Auto) 0 % (0-0); Immature Granulocytes Auto 0.02 Thou/mm3 (0.00-0.00); Lymphocytes # (Auto) 1.8 Thou/mm3 (1.0-4.8); Lymphocytes % (Auto) 29 % (10-50); Mean Corpuscular HGB Conc 33.5 g/dl (31.0-37.0); Mean Corpuscular Volume 84 fL (80-100); Monocytes # (Auto) 0.9 Thou/mm3 (0.0-0.8); Monocytes % (Auto) 14 % (0-12); Neutrophils # (Auto) 3.4 Thou/mm3 (1.8-7.7); Neutrophils % (Auto) 55 % (37-80); Nucleated Red Blood Cell % 0 /100 WBC (0); Platelet Count 245 Thou/mm3 (140-440); RDW Standard Deviation 43.9 fL (35.1-43.9); Red Blood Count 5.28 Miln/mm3 (4.50-5.90); White Blood Count 6.2 Thou/mm3 (3.8-10.6)
[2024-03-18 06:41] LABS: Partial Thromboplastin Time 26.2 Seconds (22.0-36.0); Prothrombin Time 10.8 Seconds (9.0-12.2)
[2024-03-18 07:00] LABS: Alanine Aminotransferase 14 U/L (10-49); Albumin, Serum 4.2 gm/dL (3.4-4.8); Albumin/Globulin Ratio 1.6 (1.2-2.2); Alkaline Phosphatase 90 U/L (46-116); Anion Gap 10 (7-16); Aspartate Amino Transferase 14 U/L (0-34); BUN/Creatinine Ratio 38 Ratio (12-20); Bilirubin,Total 0.5 mg/dL (0.3-1.2); Blood Urea Nitrogen 57 mg/dL (9-23); Calcium 9.4 mg/dL (8.3-10.6); Calcium (Corrected) 9.4 mg/dL (8.5-10.1); Carbon Dioxide 31.3 mMol/L (20.0-31.0); Chloride 88 mMol/L (98-107); Creatinine (Component) 1.5 mg/dL (0.6-1.3); Estimated Creatinine Clearance 71.4 mL/min (>60); Globulin 2.7 gm/dL (2.3-3.5); Glucose 200 mg/dL (74-106); Magnesium 2.6 mg/dL (1.6-2.6); Osmolality,Calculated 280 (275-295); Phosphorous 2.8 mg/dL (2.4-5.1); Potassium 2.8 mMol/L (3.4-5.1); Sodium 129 mMol/L (136-145); Thyroid Stimulating Hormone 0.87 uIU/mL (0.55-4.78); Total Protein 6.9 gm/dL (5.7-8.2); eGFR 52 See Note
[2024-03-18] MEDS: EZETIMIBE 10 MG TABLET PO (09:05)
[2024-03-18] MEDS: PANTOPRAZOLE 40 MG TABLET PO (09:05)
--- NOTE | 2024-03-18 10:40 | PC.NURSE ---
Called lab regarding stool culture, lab reported that specimen did not meet qualifications for C. diff and was cancelled, notified Dr. Suazo, ordered ok to remove precautions.
[2024-03-18] MEDS: ATORVASTATIN CALCIUM 20 MG TABLET 40 MG PO (10:55)
[2024-03-18] MEDS: POTASSIUM CHL 10 mEq IVPB 10 MEQ/100 ML BAG 100 MEQ IV ×4 (10:56→14:48)
--- NOTE | 2024-03-18 14:39 | ESPR_ITS ---
Documentation for date of: 03/18/24 Subjective Subjective Interval history: Patient was examined bedside this morning, he was drinking his GoLytely. C. difficile was canceled by lab because of stool consistency. Pending colonoscopy tonight by Dr Romeo .wound noted in left heel . wound care ordered . Patient was extensively counseled about his diabetes and diabetic education ordered. he might need insulin on discharge . Exam Vital Signs Temp Pulse Resp BP Pulse Ox O2 Del Method 97.7 F 87 18 129/77 97 Room Air 03/18/24 12:00 03/18/24 12:00 03/18/24 12:00 03/18/24 12:00 03/18/24 12:00 03/18/24 12:00 Narrative Exam GENERAL: Comfortable adult seen resting comfortably in hospital bed, no acute distress, morbidly obese VITALS: All vitals were reviewed and the pulse ox is 98% on room air HEENT: Normocephalic, atraumatic. Pupils are equal and reactive. Oral mucosa is moist. NECK: Supple, nontender, no JVD CHEST: Symmetrical, atraumatic and with equal expansion ,Nontender on palpation CARDIOVASCULAR: Heart regular rhythm & rate. S1/S2. no murmur or gallop rub or extra beats. LUNGS: Clear to auscultation bilaterally with symmetrical chest rise. No laboring tachypnea or wheezing. No intercostal subcostal retraction. No rales and no rhonchi. ABDOMEN: Obese ,nontender to palpation, no guarding or rebound tenderness. Active and normal bowel sounds. EXTREMITIES:Moves all 4 extremities,left medial malleous diabetic ulcer NEURO: Patient is AO x 3, Cranial nerves II through XII grossly intact. There is no focal neurologic deficits noted. PSYCHIATRIC: Patient is in normal mood, cooperative, no SI or HI or hallucinations. Objective Labs 03/18/24 05:04 03/18/24 05:04 Labs: Laboratory Results - last 24 hr 03/17/24 03/18/24 03/18/24 16:14 02:00 05:04 WBC 6.2 RBC 5.28 Hgb 14.8 Hct 44.2 MCV 84 MCH 28.0 MCHC 33.5 RDW Std Deviation 43.9 Plt Count 245 Neut % (Auto) 55 Lymph % (Auto) 29 [place] % (Auto) 14 H Eos % (Auto) 2 Baso % (Auto) 1 Neut # (Auto) 3.4 Lymph # (Auto) 1.8 [place] # (Auto) 0.9 H Eos # (Auto) 0.1 Baso # (Auto) 0.0 Immature Gran # (Auto) 0.02 H Absolute Nucleated RBC 0.00 Immature Gran % 0 Nucleated RBC % 0 PT 10.8 INR 1.0 APTT 26.2 Sodium 129 L Potassium 2.8 L Chloride 88 L Carbon Dioxide 31.3 H Anion Gap 10 BUN 57 H Creatinine 1.5 H D Estim Creat Clear Calc 71.4 eGFR 52 L BUN/Creatinine Ratio 38 H Glucose 200 H D Calculated Osmolality 280 Calcium 9.4 Corrected Calcium 9.4 Phosphorus 2.8 Magnesium 2.6 Total Bilirubin 0.5 AST 14 ALT 14 Alkaline Phosphatase 90 Total Protein 6.9 Albumin 4.2 Globulin 2.7 Albumin/Globulin Ratio 1.6 TSH 0.87 Ur Collection Type Clean Catch Urine Color Lt-Yellow Urine Clarity Clear Urine pH 6.0 Ur Specific [place] 1.023 Urine Protein Trace Urine Glucose (UA) 4+ A Urine Ketones Negative Urine Blood Negative Urine Nitrite Negative Urine Bilirubin Negative Urine Urobilinogen (Auto) Negative Ur Leukocyte Esterase Negative Urine RBC 1 Urine WBC < 1 Ur Squamous Epith Cells 1 Urine Bacteria None Stl C. diff Tox B Gene Cancelled Quality Measures Quality Measures none Assessment & Plan Assessment Current Active Medications: Generic Name Dose Route Start Last Admin Trade Name Freq PRN Reason Stop Dose Admin Acetaminophen 650 mg 03/17/24 06:07 Acetaminophen 325 Mg Tablet PO 04/16/24 06:06 Q6H PRN Fever >101.5 or pain 1-3 Hydrocodone Bitart/Acetaminophen 1 tab 03/17/24 06:07 03/18/24 13:45 Hydrocodone/Apap 5/325 Tablet PO 03/22/24 06:06 1 tab Q4HR PRN Administration PAIN SCALE 4-6 (Moderate Atorvastatin Calcium 40 mg 03/17/24 10:00 03/18/24 10:55 Atorvastatin Calcium 20 Mg Tablet PO 04/16/24 08:59 40 mg QDAY JAKE Administration Dextrose 25 ml 03/17/24 06:18 Dextrose 50%-Water Inj 50 Ml Syringe IV 04/16/24 06:17 Q15MIN PRN BG 50-70 responsive npo pt Dextrose 50 ml 03/17/24 06:18 Dextrose 50%-Water Inj 50 Ml Syringe IV 04/16/24 06:17 Q15MIN PRN BG <50 OR BG <70 & pt unresponsive Docusate Sodium 100 mg 03/17/24 09:00 03/18/24 09:08 Docusate Sod 100 Mg Capsule PO 04/16/24 08:59 Not Given BID [facility] Protocol Ezetimibe 10 mg 03/17/24 09:00 03/18/24 09:05 Ezetimibe 10 Mg Tablet PO 04/16/24 08:59 10 mg QDAY JAKE Administration Glucagon 1 mg 03/17/24 06:18 Glucagon Inj 1 Mg Vial IM Q15MIN PRN BG <70, and no IV access Insulin Glargine 20 unit 03/18/24 09:00 03/18/24 08:22 Insulin Glargine (Lantus) 5 Unit/0.05 Ml (Per 5 Units) SC 04/17/24 08:59 Not Given DAILY [facility] Insulin Human Lispro 0 unit 03/17/24 19:10 03/18/24 11:41 Insulin Lispro (Admelog) 1 Unit/0.01 Ml Unit SC 04/16/24 07:29 Not Given ACHS [facility] Protocol Insulin Human Lispro 7 unit 03/18/24 08:00 03/18/24 11:42 Insulin Lispro (Admelog) 1 Unit/0.01 Ml Unit SC 04/17/24 07:59 Not Given TIDWM [facility] Ondansetron HCl 4 mg 03/17/24 06:07 03/17/24 11:21 Ondansetron Inj 2 Mg/Ml Inj 2 Ml IV 04/16/24 06:06 4 mg Q6H PRN Administration NAUSEA OR VOMITING Protocol Pantoprazole Sodium 40 mg 03/17/24 09:00 03/18/24 09:05 Pantoprazole 40 Mg Tablet PO 04/16/24 08:59 40 mg QDAY [facility] Administration Pharmacy Consult 1 each 03/17/24 22:44 Pharmacy To Consult Pneumovacc XX 04/16/24 22:43 PRN PRN CONSULT Sennosides 1 tab 03/17/24 06:07 Senna Tablet PO 04/16/24 06:06 QDAY PRN constipation Protocol Dara Sai is a 63 y/o male with PMHx HTN, hyperlipidemia, A-fib (on Eliquis), izb-ukzcnhc-nrgssspdr diabetes mellitus, CHF who is admitted for syncope and GI bleed. #Lower GI bleed -Hemoglobin of ~16, in the setting of volume depletion 2/2 nausea and vomiting on admission -Has been having bloody bowel movements for some time now, was supposed to get outpatient colonoscopy DDx: infectious vs hemorrhoids -Today his hemoglobin is 14.4 ?GI consulted, appreciate recs ?Transfusion protocol below 7 ?Protonix daily ? SCDs -Pending colonoscopy Note : Diabetic diet after colonoscopy is completed #History of vcb-jzrdygh-ghuuasznk diabetes mellitus ? A1c 12.3 - Lantus 20 U daily - SSI moderate scale ACHS - Lispro 7 units TIDWM -Patient might need to be discharged on insulin, diabetic education placed # Diabetic foot ulcer -Patient has small foot ulcer in left foot -Wound care in place -Follow xray for left foot #Syncope- resolved - likely secondary to nausea and vomiting that has been going on for past couple days leading to volume depletion, Further complicated by Lower GI bleed -Patient received IV bolus fluid 1 L - will do PT after colonoscopy #pre renal FAUZIA on CKD - resolved Likely prerenal due to GI losses(on admission 2.5 ) Status post 1 L bolus in ER -Today 1.5 -Avoid nephrotoxic agents -Renally dose medicines #Electrolyte abnormalities #Hyponatremia #Hypochloremia #Hypokalemia #Metabolic alkalosis -Most likely Secondary to GI losses and poor oral intake since last 1 week -Patient was given 1 L bolus in the ER - Releted KCl ?Replete as needed #Hx of A-fib -On Eliquis -CHADVASC of 3 - Holding Eliquis in setting of GI bleed #History of hypertension #History of hyperlipidemia -Holding home hypertensive in setting of normal blood pressure . ?Resumed home Ezetimibe and Lipitor #possible LEONEL - Stop bang score of 7 -He will need outpatient sleep studies #Health Maintenance Disposition: Telemetry, pending colonoscopy DVT prophylaxis: SCDs GI prophylaxis: Protonix Diet: Carb consistent CODE STATUS: Full The patient's management plan was discussed with my attending physician Dr. Allie Gorman MD, PGY-3 Attending Provider Attestation/Addendum I have examined the patient, reviewed labs and imaging findings, discussed the case with the resident(s), and reviewed entered orders. I agree with the plan of care as outlined in this note, with these additional summaries/recommendations: Patient seen at bedside. No acute overnight events. Today patient has no new symptoms to report other than he is hungry. He reports he has not eaten any solid food in approximately 5 days. Patient has completed [employer] and will go for colonoscopy today with gastroenterology. Hemoglobin currently stable. Patient was also found to have electrolyte abnormalities. Potassium currently 2.8 and most likely secondary to poor oral intake. Replacement given and follow-up potassium this evening. Hypoosmolar hypochloremic hyponatremia found on chemistry panel which is improving. Possibly related to extrarenal losses. Patient has FAUZIA on CKD. Patient was reportedly told weeks ago that he has kidney disease. FAUZIA most likely secondary to prerenal azotemia in the setting of GI bleed and CKD secondary to diabetic nephropathy. Overall renal function continues to improve and creatinine down to 1.5 today. Continue to avoid nephrotoxic agents and renally dose medications. Patient has history of underlying paroxysmal A-fib and holding Eliquis in the setting of a GI bleed. Patient has uncontrolled diabetes mellitus type 2 although he reports compliance with home medications. Continue basal and bolus insulin. A1c 12.3% and diabetic education ordered as patient will likely require insulin on discharge. Left lower extremity diabetic foot ulcer noted. No discharge or evidence of infection at this time. In-house wound care consulted and patient will need close outpatient wound care follow-up. Patient updated on the plan and in agreement. All questions answered to satisfaction. Repeat hematology and chemistry panel in AM. Dr. Kelley
--- NOTE | 2024-03-18 14:59 | XR_ITS ---
Examination: Foot, left, 3 views Technique: AP, oblique, lateral views foot, 3 views Date and time of exam: March 18, 2024 at 2007 hrs. Indications: Redness swelling and pain involving the foot this week Findings: Moderate osteopenia 12 mm plantar 8 mm posterior bony calcaneal spurs No fracture No amarilys cortical bone destruction Impression: No amarilys cortical bone destruction Consider MRI foot without contrast follow-up
--- NOTE | 2024-03-18 15:02 | PC.CC ---
Rounding note: Pt pending colonoscopy.
--- NOTE | 2024-03-18 16:40 | SUR.PHASEI ---
received pt and report from CRISTINA George. Pt resting with eyes closed, no distress noted, IV to left wrist, slight redness noted to site. vss, abd soft on palpation, pt denies any pain. will cont to monitor
--- NOTE | 2024-03-18 17:05 | SUR.PHASEI ---
pt recovering well, vss, no distress noted. Pt adjusted self in rstateline. iv remains intact. pt passed flatus upon movement. report given to CRISTINA Pike.
[2024-03-18] MEDS: INSULIN LISPRO (AdmeLOG) 1 UNIT/0.01 ML UNIT SC ×2 (18:00→20:20)
[2024-03-18] MEDS: INSULIN LISPRO (AdmeLOG) 1 UNIT/0.01 ML UNIT 7 UNIT SC (18:00)
[2024-03-18] MEDS: sulfaSALAzine 500 MG TABLET 1000 MG PO (18:01)
[2024-03-18] MEDS: DOCUSATE SOD 100 MG CAPSULE PO (20:20)
[2024-03-19] VITALS (9 sets, daily range): BP systolic 99–146; BP diastolic 56–83; PULSE 75–97; RESP 16–99; TEMP 35.9–36.4; O2SAT 95–99; BMI 34.4; BMI 34.3
--- NOTE | 2024-03-19 01:59 | PC.NURSE ---
Assumed care for patient presented self as primary nurse. GCS 15 resp even and unlabored no sob. Call light with in reach safety reviewed with patient.
[2024-03-19] MEDS: HYDROcodone/APAP 5/325 TABLET 1 TAB PO ×5 (04:10→21:48)
[2024-03-19 06:52] LABS: Basophils # (Auto) 0.1 Thou/mm3 (0.0-0.2); Basophils % (Auto) 1 % (0-2.5); Eosinophils # (Auto) 0.1 Thou/mm3 (0.0-0.5); Eosinophils % (Auto) 2 % (0-10); Hematocrit 42.7 % (41.0-53.0); Hemoglobin 14.2 g/dL (13.5-16.0); Immature Granulocytes % (Auto) 0 % (0-0); Immature Granulocytes Auto 0.01 Thou/mm3 (0.00-0.00); Lymphocytes # (Auto) 2.1 Thou/mm3 (1.0-4.8); Lymphocytes % (Auto) 30 % (10-50); Mean Corpuscular HGB Conc 33.3 g/dl (31.0-37.0); Mean Corpuscular Hemoglobin 28.2 pg (25.0-35.0); Mean Corpuscular Volume 85 fL (80-100); Monocytes # (Auto) 0.9 Thou/mm3 (0.0-0.8); Monocytes % (Auto) 13 % (0-12); Neutrophils # (Auto) 3.7 Thou/mm3 (1.8-7.7); Neutrophils % (Auto) 55 % (37-80); Nucleated Red Blood Cell % 0 /100 WBC (0); Platelet Count 250 Thou/mm3 (140-440); RDW Standard Deviation 45.1 fL (35.1-43.9); Red Blood Count 5.03 Miln/mm3 (4.50-5.90); White Blood Count 6.8 Thou/mm3 (3.8-10.6)
[2024-03-19 07:02] LABS: Prothrombin Time 10.5 Seconds (9.0-12.2)
[2024-03-19 07:08] LABS: Alanine Aminotransferase 21 U/L (10-49); Albumin, Serum 4.3 gm/dL (3.4-4.8); Albumin/Globulin Ratio 1.7 (1.2-2.2); Alkaline Phosphatase 103 U/L (46-116); Anion Gap 7 (7-16); Aspartate Amino Transferase 21 U/L (0-34); BUN/Creatinine Ratio 27 Ratio (12-20); Bilirubin,Total 0.4 mg/dL (0.3-1.2); Blood Urea Nitrogen 32 mg/dL (9-23); Calcium 9.3 mg/dL (8.3-10.6); Calcium (Corrected) 9.3 mg/dL (8.5-10.1); Carbon Dioxide 33.5 mMol/L (20.0-31.0); Chloride 92 mMol/L (98-107); Creatinine (Component) 1.2 mg/dL (0.6-1.3); Estimated Creatinine Clearance 87.3 mL/min (>60); Globulin 2.6 gm/dL (2.3-3.5); Glucose 253 mg/dL (74-106); Magnesium 2.5 mg/dL (1.6-2.6); Osmolality,Calculated 280 (275-295); Phosphorous 2.6 mg/dL (2.4-5.1); Potassium 3.2 mMol/L (3.4-5.1); Sodium 132 mMol/L (136-145); Total Protein 6.9 gm/dL (5.7-8.2); eGFR > 60 See Note
[2024-03-19] MEDS: INSULIN GLARGINE (Lantus) 5 UNIT/0.05 ML (PER 5 UNITS) 28 UNIT SC (08:45)
[2024-03-19] MEDS: INSULIN LISPRO (AdmeLOG) 1 UNIT/0.01 ML UNIT SC ×4 (08:47→20:51)
[2024-03-19] MEDS: FOLIC ACID 1 MG TABLET PO (08:48)
[2024-03-19] MEDS: DOCUSATE SOD 100 MG CAPSULE PO ×2 (08:48→20:51)
[2024-03-19] MEDS: sulfaSALAzine 500 MG TABLET 1000 MG PO ×2 (08:48→17:18)
[2024-03-19] MEDS: ATORVASTATIN CALCIUM 20 MG TABLET 40 MG PO (08:48)
[2024-03-19] MEDS: EZETIMIBE 10 MG TABLET PO (08:49)
[2024-03-19] MEDS: PANTOPRAZOLE 40 MG TABLET PO (08:49)
[2024-03-19] MEDS: POTASSIUM CHLORIDE 20 mEq TABCR 40 MEQ PO (08:53)
--- NOTE | 2024-03-19 11:19 | ESPR_ITS ---
Documentation for date of: 03/19/24 Subjective Subjective Interval history: Patient seen at bedside this morning. No overnight events. Patient stated that he still feels rough and bloated. Colonoscopy revealed hemorrhoids, diverticulosis, and erythematous mucosa in the descending colon and sigmoid colon for which biopsies were taken. GI started patient on sulfasalazine 500 mg twice daily and folic acid 1 mg p.o. daily as well as low residue diet for possible inflammatory bowel disease. Patient's hemoglobin remained stable. His blood sugars were again elevated therefore adjusted his insulin to glargine 28 units and 3 units of lispro 3 times daily with meals as well as sliding scale on top. No other complaints at this time. Pending echo. Exam Vital Signs Temp Pulse Resp BP Pulse Ox O2 Del Method O2 Flow Rate 96.6 F L 75 19 146/80 H 99 Room Air 3 03/19/24 08:00 03/19/24 08:00 03/19/24 08:00 03/19/24 08:00 03/19/24 08:00 03/19/24 08:00 03/18/24 16:25 Narrative Exam General: A/O x3, no acute distress,obese Eyes: PERRL, EOMI. Anicteric, vision grossly intact. Ears: No ear pain, no ear discharge, Hearing grossly intact. Nose: No nasal discharge. Mouth/Throat: Dry mucous membranes, no redness, no lesions. Neck: Neck supple, non-tender, no cervical lymphadenopathy. Lungs: Clear ELSA to auscultation and percussion, No accessory muscle use. Cardio: Normal S1/S2, regular rhythm, no murmurs, no JVD Abdomen: Soft, but distended, mildly tender on L side, no palpable masses, peristalsis present, no guarding or rebound. Extremities: Symmetrical, no significant deformities, 1+ peripheral edema , non- tender, peripheral pulses presents. Skin: No rashes, no lesions, warm to touch. Neuro: No focal neurological deficits. motor and sensory intact. Psych: Cooperative, appropriate mood and effect. Objective Labs 03/19/24 06:38 03/19/24 06:38 Labs: Laboratory Results - last 24 hr 03/19/24 06:38 WBC 6.8 RBC 5.03 Hgb 14.2 Hct 42.7 MCV 85 MCH 28.2 MCHC 33.3 RDW Std Deviation 45.1 H Plt Count 250 Neut % (Auto) 55 Lymph % (Auto) 30 [place] % (Auto) 13 H Eos % (Auto) 2 Baso % (Auto) 1 Neut # (Auto) 3.7 Lymph # (Auto) 2.1 [place] # (Auto) 0.9 H Eos # (Auto) 0.1 Baso # (Auto) 0.1 Immature Gran # (Auto) 0.01 H Absolute Nucleated RBC 0.00 Immature Gran % 0 Nucleated RBC % 0 PT 10.5 INR 1.0 Sodium 132 L Potassium 3.2 L Chloride 92 L Carbon Dioxide 33.5 H Anion Gap 7 BUN 32 H Creatinine 1.2 Estim Creat Clear Calc 87.3 eGFR > 60 BUN/Creatinine Ratio 27 H Glucose 253 H D Calculated Osmolality 280 Calcium 9.3 Corrected Calcium 9.3 Phosphorus 2.6 Magnesium 2.5 Total Bilirubin 0.4 AST 21 ALT 21 Alkaline Phosphatase 103 Total Protein 6.9 Albumin 4.3 Globulin 2.6 Albumin/Globulin Ratio 1.7 Quality Measures Quality Measures none Assessment & Plan Assessment Current Active Medications: Generic Name Dose Route Start Last Admin Trade Name Freq PRN Reason Stop Dose Admin Acetaminophen 650 mg 03/17/24 06:07 Acetaminophen 325 Mg Tablet PO 04/16/24 06:06 Q6H PRN Fever >101.5 or pain 1-3 Hydrocodone Bitart/Acetaminophen 1 tab 03/17/24 06:07 03/19/24 08:49 Hydrocodone/Apap 5/325 Tablet PO 03/22/24 06:06 1 tab Q4HR PRN Administration PAIN SCALE 4-6 (Moderate Atorvastatin Calcium 40 mg 03/17/24 10:00 03/19/24 08:48 Atorvastatin Calcium 20 Mg Tablet PO 04/16/24 08:59 40 mg QDAY JAKE Administration Dextrose 25 ml 03/17/24 06:18 Dextrose 50%-Water Inj 50 Ml Syringe IV 04/16/24 06:17 Q15MIN PRN BG 50-70 responsive npo pt Dextrose 50 ml 03/17/24 06:18 Dextrose 50%-Water Inj 50 Ml Syringe IV 04/16/24 06:17 Q15MIN PRN BG <50 OR BG <70 & pt unresponsive Docusate Sodium 100 mg 03/17/24 09:00 03/19/24 08:48 Docusate Sod 100 Mg Capsule PO 04/16/24 08:59 100 mg BID JAKE Administration Protocol Ezetimibe 10 mg 03/17/24 09:00 03/19/24 08:49 Ezetimibe 10 Mg Tablet PO 04/16/24 08:59 10 mg QDAY JAKE Administration Folic Acid 1 mg 03/19/24 09:00 03/19/24 08:48 Folic Acid 1 Mg Tablet PO 04/18/24 08:59 1 mg QDAY JAKE Administration Glucagon 1 mg 03/17/24 06:18 Glucagon Inj 1 Mg Vial IM Q15MIN PRN BG <70, and no IV access Insulin Glargine 28 unit 03/19/24 09:00 03/19/24 08:45 Insulin Glargine (Lantus) 5 Unit/0.05 Ml (Per 5 Units) SC 04/18/24 08:59 28 unit DAILY JAKE Administration Insulin Human Lispro 0 unit 03/17/24 19:10 03/19/24 08:47 Insulin Lispro (Admelog) 1 Unit/0.01 Ml Unit SC 04/16/24 07:29 6 unit ACHS JAKE Administration Protocol Insulin Human Lispro 3 unit 03/19/24 12:00 Insulin Lispro (Admelog) 1 Unit/0.01 Ml Unit SC 04/18/24 11:59 TIDWM [facility] Ondansetron HCl 4 mg 03/17/24 06:07 03/17/24 11:21 Ondansetron Inj 2 Mg/Ml Inj 2 Ml IV 04/16/24 06:06 4 mg Q6H PRN Administration NAUSEA OR VOMITING Protocol Pantoprazole Sodium 40 mg 03/17/24 09:00 03/19/24 08:49 Pantoprazole 40 Mg Tablet PO 04/16/24 08:59 40 mg QDAY [facility] Administration Pharmacy Consult 1 each 03/17/24 22:44 Pharmacy To Consult Pneumovacc XX 04/16/24 22:43 PRN PRN CONSULT Sennosides 1 tab 03/17/24 06:07 Senna Tablet PO 04/16/24 06:06 QDAY PRN constipation Protocol Sulfasalazine 1,000 mg 03/18/24 18:00 03/19/24 08:48 Sulfasalazine 500 Mg Tablet PO 04/17/24 17:59 1,000 mg BIDPC [facility] Administration Plan 63-year-old male with past medical history of hypertension, hyperlipidemia, A- fib (on Eliquis), NIDDM, and CHF was admitted to the hospital for GI bleed and syncopal episode. #IBD? #Lower GI bleed #Hemorrhoids #Diverticulosis #Polyps ?Patient came in due to bloody bowel movements and had not had his outpatient colonoscopy. ? Hemoglobin has been stable and currently is at 14.2 ? Colonoscopy revealed hemorrhoids, diverticulosis, polyps, and erythematous mucosa in the descending colon and sigmoid colon for which biopsies were taken. Plan: ?Sulfasalazine 500 twice daily ? Protonix 40 mg p.o. ?Folic acid 4 mg daily ?GI consulted, appreciate recommendations #Uncontrolled NIDDM ?A1c 12.3 on admission ? Glucose today 253 Plan: ?Glargine 28 units -Lispro 3units TIDWM -ISS ?Accu-Cheks and hypoglycemia protocol #Syncopal episode #FAUZIA #Intractable nausea and vomiting ? Syncopal episode and FAUZIA most likely secondary to dehydration in the setting of N/V and diarrhea - Cr 2.5 on admission -Cr 1.2 today #Hx of CHF? ?No echo on file ? BNP less than 20 ? Patient has bilateral lower extremity swelling Plan: ? Echo ordered ? Will continue to monitor #Electrolyte imbalance #Hyponatremia #Hypokalemia #Hypochloremia #Metabolic alkalosis ? Most likely secondary to GI losses accompanied with nausea and vomiting. ? Patient initially received IV fluids ?sodium 132, potassium 3.2, chloride 92, bicarb 33.5 today Plan: ? Potassium 40 x 1 today ?Will replete as necessary ? Will continue to monitor #Hx of A-fib ?[id number] score of 3 ? Patient is rate controlled and his Eliquis is on hold given his GI bleed #Hx of hypertension #Hx of hyperlipidemia ?Patient blood pressure has been stable throughout the hospital stay Plan: -will hold off on antihypertensive medication for now patient's blood pressure has been controlled ?resume Lipitor and ezetimibe Disposition: Patient seen in [facility], pending echo and changed patient's insulin regimen Diet: Low fiber and carb consistent low GI prophylaxis: Protonix DVT prophylaxis: Not indicated due to lower GI bleed Code: Full Case disclosed with Attending Dr. Lang and My senior Dr. Hoffmann PGY2. Jayesh Morgan PGY1 Senior Resident Attestation: The patient is doing much better this morning. However, we do not have cardiac echocardiography results, after which the patient will be discharged with appropriate medical management. I discussed with and supervised the international trade analyst physician involved in the care of this patient. I personally saw and examined the patient and discussed the assessment and plan with the entire medicine team, including my attending. I agree with the assessment and plan as documented above. Ernst Hoffmann MD PGY2 Internal Medicine Attending Provider Attestation/Addendum I reviewed labs, imaging, EKG, home medications and prior available records. Face to face evaluation was performed by me. I have personally examined the patient and discussed assessment and plan with the IM team. I reviewed the resident note and agree with the plan with exceptions as below. Lower GI bleed Acute anemia FAUZIA on CKD Atrial fibrillation with controlled ventricular rhythm Uncontrolled diabetes mellitus with hyperglycemia, type II Hypokalemia Debility Status post colonoscopy that showed diverticulitis and polyps status post resection. Follow-up biopsies with GI as outpatient Possible IBD shown on colonoscopy for which he was started on sulfasalazine and folic acid Monitor H&H Creatinine improved. Monitor kidney function. Replete potassium and follow-up BMP A1c 12.3. Continue insulin and Ozempic. Continue wound care Follow-up echocardiogram for possible CHF
--- NOTE | 2024-03-19 11:20 | PC.DIETICIAN ---
Dietitian note: Pt interested in [place] Dov 2 w/reader if pt to be sent home on insulin. Recommend add wound nutrients vitamin C 500mg BID daily, Zinc Sulfate 22mg [id number], multivitamin-mineral daily Thank you
[2024-03-19] MEDS: INSULIN LISPRO (AdmeLOG) 1 UNIT/0.01 ML UNIT 3 UNIT SC ×2 (12:10→17:18)
--- NOTE | 2024-03-19 17:30 | PD.RESPRO ---
Documentation for date of: 03/19/24 Subjective Subjective Interval history: Patient was seen and examined at bedside, denied any new symptoms, today his serum creatinine improved from 1.5-1.2, his BUN today is 32, potassium at 3.2, at this time patient stable and his FAUZIA has resolved for that reason we will sign off the case. Please do not hesitate to reach out if you have any question or concern. Exam Vital Signs Temp Pulse Resp BP Pulse Ox O2 Del Method O2 Flow Rate 96.9 F 85 18 127/82 95 Room Air 2 03/19/24 16:00 03/19/24 16:00 03/19/24 16:00 03/19/24 16:03/19/24 16:03/19/24 16:03/19/24 13:19 Narrative Exam GEN: AOx3, able to speak full sentences HEENT: NC/AC, oral mucosa moist, neck supple CVS: RRR, S1-S2 present, no murmurs appreciated RESP: CTAB GI: soft,non distended, non tender, NBS MSK: able to move all 4 limbs, no lower extremity edema SKIN: warm and dry PASSPORT APPLICATION EXAMINER: CN II-XII and Sensation grossly intact. Objective Labs 03/19/24 06:38 03/19/24 06:38 Labs: Laboratory Results - last 24 hr 03/19/24 06:38 WBC 6.8 RBC 5.03 Hgb 14.2 Hct 42.7 MCV 85 MCH 28.2 MCHC 33.3 RDW Std Deviation 45.1 H Plt Count 250 Neut % (Auto) 55 Lymph % (Auto) 30 [place] % (Auto) 13 H Eos % (Auto) 2 Baso % (Auto) 1 Neut # (Auto) 3.7 Lymph # (Auto) 2.1 [place] # (Auto) 0.9 H Eos # (Auto) 0.1 Baso # (Auto) 0.1 Immature Gran # (Auto) 0.01 H Absolute Nucleated RBC 0.00 Immature Gran % 0 Nucleated RBC % 0 PT 10.5 INR 1.0 Sodium 132 L Potassium 3.2 L Chloride 92 L Carbon Dioxide 33.5 H Anion Gap 7 BUN 32 H Creatinine 1.2 Estim Creat Clear Calc 87.3 eGFR > 60 BUN/Creatinine Ratio 27 H Glucose 253 H D Calculated Osmolality 280 Calcium 9.3 Corrected Calcium 9.3 Phosphorus 2.6 Magnesium 2.5 Total Bilirubin 0.4 AST 21 ALT 21 Alkaline Phosphatase 103 Total Protein 6.9 Albumin 4.3 Globulin 2.6 Albumin/Globulin Ratio 1.7 Quality Measures Quality Measures none Assessment & Plan Assessment Current Active Medications: Generic Name Dose Route Start Last Admin Trade Name Frebenigno PRN Reason Stop Dose Admin Acetaminophen 650 mg 03/17/24 06:07 Acetaminophen 325 Mg Tablet PO 04/16/24 06:06 Q6H PRN Fever >101.5 or pain 1-3 Hydrocodone Bitart/Acetaminophen 1 tab 03/17/24 06:07 03/19/24 17:21 Hydrocodone/Apap 5/325 Tablet PO 03/22/24 06:06 1 tab Q4HR PRN Administration PAIN SCALE 4-6 (Moderate Atorvastatin Calcium 40 mg 03/17/24 10:00 03/19/24 08:48 Atorvastatin Calcium 20 Mg Tablet PO 04/16/24 08:59 40 mg QDAY JAKE Administration Dextrose 25 ml 03/17/24 06:18 Dextrose 50%-Water Inj 50 Ml Syringe IV 04/16/24 06:17 Q15MIN PRN BG 50-70 responsive npo pt Dextrose 50 ml 03/17/24 06:18 Dextrose 50%-Water Inj 50 Ml Syringe IV 04/16/24 06:17 Q15MIN PRN BG <50 OR BG <70 & pt unresponsive Docusate Sodium 100 mg 03/17/24 09:00 03/19/24 08:48 Docusate Sod 100 Mg Capsule PO 04/16/24 08:59 100 mg BID JAKE Administration Protocol Ezetimibe 10 mg 03/17/24 09:00 03/19/24 08:49 Ezetimibe 10 Mg Tablet PO 04/16/24 08:59 10 mg QDAY JAKE Administration Folic Acid 1 mg 03/19/24 09:00 03/19/24 08:48 Folic Acid 1 Mg Tablet PO 04/18/24 08:59 1 mg QDAY JAKE Administration Glucagon 1 mg 03/17/24 06:18 Glucagon Inj 1 Mg Vial IM Q15MIN PRN BG <70, and no IV access Insulin Glargine 28 unit 03/19/24 09:00 03/19/24 08:45 Insulin Glargine (Lantus) 5 Unit/0.05 Ml (Per 5 Units) SC 04/18/24 08:59 28 unit DAILY JAKE Administration Insulin Human Lispro 0 unit 03/17/24 19:10 03/19/24 17:17 Insulin Lispro (Admelog) 1 Unit/0.01 Ml Unit SC 04/16/24 07:29 4 unit ACHS JAKE Administration Protocol Insulin Human Lispro 3 unit 03/19/24 12:00 03/19/24 17:18 Insulin Lispro (Admelog) 1 Unit/0.01 Ml Unit SC 04/18/24 11:59 3 unit TIDWM JAKE Administration Ondansetron HCl 4 mg 03/17/24 06:07 03/17/24 11:21 Ondansetron Inj 2 Mg/Ml Inj 2 Ml IV 04/16/24 06:06 4 mg Q6H PRN Administration NAUSEA OR VOMITING Protocol Pantoprazole Sodium 40 mg 03/17/24 09:00 03/19/24 08:49 Pantoprazole 40 Mg Tablet PO 04/16/24 08:59 40 mg QDAY JAKE Administration Pharmacy Consult 1 each 03/17/24 22:44 Pharmacy To Consult Pneumovacc XX 04/16/24 22:43 PRN PRN CONSULT Sennosides 1 tab 03/17/24 06:07 Senna Tablet PO 04/16/24 06:06 QDAY PRN constipation Protocol Sulfasalazine 1,000 mg 03/18/24 18:00 03/19/24 17:18 Sulfasalazine 500 Mg Tablet PO 04/17/24 17:59 1,000 mg BIDPC JAKE Administration
--- NOTE | 2024-03-19 19:48 | PD.IMPROG ---
Documentation for date of: 03/19/24 Subjective Subjective Interval history: Case discussed with internal medicine team Patient on sulfasalazine and folic acid with the possibility of a inflammatory bowel disease involving the left colon Moderate diverticulosis involving sigmoid and descending colon Exam Vital Signs Temp Pulse Resp BP Pulse Ox O2 Del Method O2 Flow Rate 96.9 F 85 18 127/82 95 Room Air 2 03/19/24 16:00 03/19/24 16:00 03/19/24 16:00 03/19/24 16:00 03/19/24 16:00 03/19/24 16:00 03/19/24 13:19 Objective Labs 03/19/24 06:38 03/19/24 06:38 Labs: Laboratory Results - last 24 hr 03/19/24 06:38 WBC 6.8 RBC 5.03 Hgb 14.2 Hct 42.7 MCV 85 MCH 28.2 MCHC 33.3 RDW Std Deviation 45.1 H Plt Count 250 Neut % (Auto) 55 Lymph % (Auto) 30 [place] % (Auto) 13 H Eos % (Auto) 2 Baso % (Auto) 1 Neut # (Auto) 3.7 Lymph # (Auto) 2.1 [place] # (Auto) 0.9 H Eos # (Auto) 0.1 Baso # (Auto) 0.1 Immature Gran # (Auto) 0.01 H Absolute Nucleated RBC 0.00 Immature Gran % 0 Nucleated RBC % 0 PT 10.5 INR 1.0 Sodium 132 L Potassium 3.2 L Chloride 92 L Carbon Dioxide 33.5 H Anion Gap 7 BUN 32 H Creatinine 1.2 Estim Creat Clear Calc 87.3 eGFR > 60 BUN/Creatinine Ratio 27 H Glucose 253 H D Calculated Osmolality 280 Calcium 9.3 Corrected Calcium 9.3 Phosphorus 2.6 Magnesium 2.5 Total Bilirubin 0.4 AST 21 ALT 21 Alkaline Phosphatase 103 Total Protein 6.9 Albumin 4.3 Globulin 2.6 Albumin/Globulin Ratio 1.7 Impressions Impression: # Transverse colon polyp endoscopically resected histopathology pending # Erythematous mucosa left colon biopsies pending underlying differential diagnosis include inflammatory bowel disease Continue current management Assessment & Plan A&P Narrative # Hematochezia Plan Stool culture and sensitivity and stool C. difficile Clear liquid diet GoLytely prep Consent obtained for fiberoptic colonoscopy with possible biopsy possible therapeutic intervention under intravenous moderate sedation Recommend CT scan of the abdomen pelvis with contrast Will follow the patient Other medical problems include # Essential hypertension # Hyperlipidemia # Chronic atrial fibrillation # Diabetes mellitus type 2 # Congestive heart failure Thank you very much for the opportunity to participate in the care of this patient Time Spent With Patient Time: Total time spent is greater than 50% in coordination of care (as documented) at patient's floor/unit and/or counseling patient:
[2024-03-19] MEDS: MELATONIN 3 MG TABLET PO (21:40)
[2024-03-20] VITALS (8 sets, daily range): BP systolic 99–148; BP diastolic 67–82; PULSE 82–102; RESP 15–98; TEMP 36.1–36.3; O2SAT 93–100; BMI 34.7
[2024-03-20] MEDS: HYDROcodone/APAP 5/325 TABLET 1 TAB PO ×3 (02:43→14:55)
[2024-03-20] MEDS: INSULIN LISPRO (AdmeLOG) 1 UNIT/0.01 ML UNIT 3 UNIT SC (07:45)
[2024-03-20] MEDS: INSULIN LISPRO (AdmeLOG) 1 UNIT/0.01 ML UNIT SC ×2 (07:46→11:48)
[2024-03-20] MEDS: sulfaSALAzine 500 MG TABLET 1000 MG PO (08:00)
[2024-03-20] MEDS: POTASSIUM CHLORIDE 20 mEq TABCR 40 MEQ PO (09:13)
[2024-03-20] MEDS: FOLIC ACID 1 MG TABLET PO (09:13)
[2024-03-20] MEDS: INSULIN GLARGINE (Lantus) 5 UNIT/0.05 ML (PER 5 UNITS) 35 UNIT SC (09:14)
[2024-03-20] MEDS: PANTOPRAZOLE 40 MG TABLET PO (09:14)
[2024-03-20] MEDS: DOCUSATE SOD 100 MG CAPSULE PO (09:14)
[2024-03-20] MEDS: EZETIMIBE 10 MG TABLET PO (09:14)
[2024-03-20] MEDS: ATORVASTATIN CALCIUM 20 MG TABLET 40 MG PO (09:14)
[2024-03-20 09:18] LABS: Basophils % (Auto) 1 % (0-2.5); Eosinophils # (Auto) 0.1 Thou/mm3 (0.0-0.5); Eosinophils % (Auto) 1 % (0-10); Hematocrit 42.8 % (41.0-53.0); Immature Granulocytes % (Auto) 0 % (0-0); Immature Granulocytes Auto 0.03 Thou/mm3 (0.00-0.00); Lymphocytes # (Auto) 1.8 Thou/mm3 (1.0-4.8); Lymphocytes % (Auto) 23 % (10-50); Mean Corpuscular HGB Conc 32.7 g/dl (31.0-37.0); Mean Corpuscular Hemoglobin 27.9 pg (25.0-35.0); Mean Corpuscular Volume 85 fL (80-100); Monocytes # (Auto) 0.7 Thou/mm3 (0.0-0.8); Monocytes % (Auto) 9 % (0-12); Neutrophils # (Auto) 5.2 Thou/mm3 (1.8-7.7); Neutrophils % (Auto) 66 % (37-80); Nucleated Red Blood Cell % 0 /100 WBC (0); Platelet Count 238 Thou/mm3 (140-440); RDW Standard Deviation 44.3 fL (35.1-43.9); Red Blood Count 5.02 Miln/mm3 (4.50-5.90); White Blood Count 7.9 Thou/mm3 (3.8-10.6)
[2024-03-20 09:31] LABS: Alanine Aminotransferase 21 U/L (10-49); Albumin, Serum 4.1 gm/dL (3.4-4.8); Albumin/Globulin Ratio 1.6 (1.2-2.2); Alkaline Phosphatase 97 U/L (46-116); Anion Gap 6 (7-16); Aspartate Amino Transferase 16 U/L (0-34); BUN/Creatinine Ratio 19 Ratio (12-20); Bilirubin,Total 0.3 mg/dL (0.3-1.2); Blood Urea Nitrogen 21 mg/dL (9-23); Calcium 9.2 mg/dL (8.3-10.6); Calcium (Corrected) 9.2 mg/dL (8.5-10.1); Carbon Dioxide 32.3 mMol/L (20.0-31.0); Chloride 93 mMol/L (98-107); Creatinine (Component) 1.1 mg/dL (0.6-1.3); Estimated Creatinine Clearance 95.6 mL/min (>60); Globulin 2.5 gm/dL (2.3-3.5); Glucose 275 mg/dL (74-106); Magnesium 2.1 mg/dL (1.6-2.6); Osmolality,Calculated 275 (275-295); Potassium 3.2 mMol/L (3.4-5.1); Sodium 131 mMol/L (136-145); Total Protein 6.6 gm/dL (5.7-8.2); eGFR > 60 See Note
--- NOTE | 2024-03-20 11:00 | ESDS_ITS ---
Planned Discharge Date 03/20/24 DS: Providers Provider Date of admission: 03/17/24 05:57 Primary care physician: ZACKERY Negrete Admitting Provider: Marcus Elias MD Attending Provider on Admission: Dashawn Lang MD Consults: 03/17/24 06:20 Consult to Gastroenterology Stat Comment: gi bleed, fobt + Consulting Provider: Geovanna Romeo 03/17/24 23:23 Referral Registered Dietitian Routine Comment: 03/18/24 13:52 Referral Registered Dietitian Routine Comment: 03/19/24 09:00 Referral Wound Care Routine Comment: Instructions: DM foot ulcer 03/19/24 10:23 Referral OP Wound Healing Dept Routine Comment: Instructions: Left heel DM ulcer 03/19/24 10:26 Referral Physical Therapy Routine Comment: Physician Instructions: Attending Provider on DC: Dashawn Lang MD Discharging Provider: Dashawn Lang MD DS: Diagnosis Problem List Completed Was Problem List Reviewed/Reconciled?: Yes Hospital Course Hospital Course Hospital course: 63-year-old male with past medical history of hypertension, hyperlipidemia, A- fib (on Eliquis), NIDDM, and CHF was admitted to the hospital on 03/17/2024 for GI bleed and syncopal episode. In the ED patient came in with complaints of near syncope and bloody diarrhea since 4 days before admission. Initially patient was mildly hypertensive and afebrile. Initial labs were relevant for pseudohyponatremia (124 and corrected 128), metabolic alkalosis (bicarb 33.4), FAUZIA (BUN 29 and creatinine 2.5), and hyperglycemia (333). Patient was placed on Protonix and given IV fluids during his hospital stay. He also developed hypokalemia throughout his hospital stay which was repleted as needed. Patient underwent colonoscopy which revealed hemorrhoids, diverticulosis, polyps, and erythematous mucosa in the descending colon and sigmoid colon for which biopsies were taken. GI specialist recommended to start patient on sulfasalazine 500 twice daily as well as folic acid for possible IBD. Patient's blood sugar remained uncontrolled throughout his hospital stay and even with multiple insulin adjustments this blood sugars remain high, but on the day of his discharge his blood sugars were more controlled. Patient also had an echo done given that he had lower extremity swelling and showed EF 60-65%. At the time of discharge patient was stable enough to be discharged home with home health for continuation of physical therapy. Discharge plan: 1) Follow up at [facility], [address] [place] [address]. Call [phone] to schedule appointment. 2) Wound care to left heel: May shower than change dressing once a day -Wash hands with soap and water. -Remove old dressing and cleanse site with wound cleanser spray and pat dry with gauze. -Wash hands again -Apply small amount of therahoney gel onto small peice of calcium algainte and place over open wound. Secure with foam dressing. -Change once a day and as needed for falling off. Elevate heels with boots or pillows while in bed to avoid wound touching any surfaces. IF needed to ambulate use ball of foot, not the heel. Problem list: #IBD? #Lower GI bleed #Hemorrhoids #Diverticulosis #Polyps #Uncontrolled NIDDM #Syncopal episode #FAUZIA #Intractable nausea and vomiting #Electrolyte imbalance #Hyponatremia #Hypokalemia #Hypochloremia #Metabolic alkalosis #Hx of A-fib #Hx of hypertension #Hx of hyperlipidemia . Case disclosed with Attending Dr. Lang and My senior Dr. Hoffmann PGY2. Jayesh Morgan PGY1 Senior Resident Attestation: I discussed with and supervised the computer science intern physician involved in the care of this patient. I personally saw and examined the patient and discussed the assessment and plan with the entire medicine team, including my attending. I agree with the discharge plan as documented above. Ernst Hoffmann MD PGY2 Internal Medicine Status at Discharge Overall status at discharge: patient is progressing back to baseline Time Spent with Patient Time attestation: Total time spent providing and/or coordinating discharge services:>35 min Home Health Home Health Referral Orders: 03/20/24 10:21 Home Health Referral Routine Reason For Exam: need home PT Home-Bound The patient must either because of illness or injury, need the aid of supportive devices such as crutches, canes, wheelchairs, and walkers; the use of special transportation; or the assistance of another person in order to leave their place of residence; OR have a condition such that leaving his or her home is medically contraindicated. In addition, the patient also meets the following criteria: patient is normally unable to leave the home and leaving home requires considerable taxing effort. Addendum to Home Health Certification Practitioner's Certification: I certify that the patient has been under my care in the hospital and the care of attending physician (see below). We had a [id number] encounter on (see date below). My clinical findings indicate that the patient is home bound per the above criteria and the Home Health Services noted in these orders are medically necessary. The primary reason for the zaky-wc-[id number] encounter is related to the fact that the patient requires home health services. Date Certifying Rptv-xi-[place]ano Physician Encounter: 03/17/24 Physician's Name who will Assume Oversight for Services: Chelsea Hirsch Physician's Phone No.who will Assume Oversight for Service: PATTERN STORAGE CLERK - Community Resources: Yes PT to Evaluate: Yes PT to evaluate and provide a treatmnet plan to increase patient's mobility and strength. Wound Care: No IV Therapy: No RN Safety Evaluation: Yes RN to evaluate and create a plan of care that will produce positive outcomes. Palliative Treatment: No Palliative treatment and evaluate the need for hospice. Home Health Aide - Personal Care: Yes Home Health Aide to assist with any ADL's. Exam Vital Signs Temp Pulse Resp BP Pulse Ox O2 Del Method O2 Flow Rate 97.2 F 84 18 114/72 94 L Nasal Cannula 1 03/20/24 08:00 03/20/24 10:00 03/20/24 08:00 03/20/24 08:00 03/20/24 08:00 03/20/24 08:00 03/20/24 08:00 Narrative Exam General: A/O x3, no acute distress,obese Eyes: PERRL, EOMI. Anicteric, vision grossly intact. Ears: No ear pain, no ear discharge, Hearing grossly intact. Nose: No nasal discharge. Mouth/Throat: Dry mucous membranes, no redness, no lesions. Neck: Neck supple, non-tender, no cervical lymphadenopathy. Lungs: Clear ELSA to auscultation and percussion, No accessory muscle use. Cardio: Normal S1/S2, regular rhythm, no murmurs, no JVD Abdomen: Soft, but distended, mildly tender on L side, no palpable masses, peristalsis present, no guarding or rebound. Extremities: Symmetrical, no significant deformities, 1+ peripheral edema , non- tender, peripheral pulses presents. Skin: No rashes, no lesions, warm to touch. Neuro: No focal neurological deficits. motor and sensory intact. Psych: Cooperative, appropriate mood and effect. Discharge Plan Plan Patient Disposition: Home w/HOME HEALTH Disposition Comment: Home health for PT Care Plan Goals: Please follow-up with your PCP within 1 week of discharge. Follow-up with furniture assembly supervisor Dr. Romeo in 2 weeks for pathology reports. You have been started on: -Insulin 25 units daily at night -Insulin lispro 7 units 3 times daily with meals -Jardiance 10 mg daily -Sulfasalazine 500 Mg 2 tablets twice daily to be continued -Folic acid 1 mg daily to be continued -Freestyle dov 3+ sensor, apply every 15 days -We have changed the dose of Eliquis 5 mg daily to 5 mg twice daily -Continue with all other medicine as prescribed -Recommended to return back to emergency department if your symptoms persist or does not improve. -Wound care recommendations to be followed as below Prescriptions/Referrals Prescriptions/Med Rec: New insulin glargine [Lantus Solostar U-100 Insulin] 100 unit/mL (3 mL) insulin pen 25 unit subcut HS Qty: 15 2RF insulin lispro [Admelog SoloStar U-100 Insulin] 100 unit/mL insulin pen 7 unit subcut TIDWM Qty: 15 2RF (DME) pen needle, diabetic [1st Tier Unifine Pentips] 31 gauge x 1/4 needle See Rx Instructions .Route Qty: 100 2RF Rx Instructions: As directed Eliquis 5 mg tablet 5 mg PO BID Qty: 60 2RF Jardiance 10 mg tablet 10 mg PO QDAY Qty: 30 2RF (DME) FreeStyle Dov 3 Plus Sensor Device See Rx Instructions .Route Qty: 2 3RF Rx Instructions: Apply every 15 days (DME) FreeStyle Dov 3 [place] [facility] See Rx Instructions .Route Qty: 1 0RF Rx Instructions: As directed sulfasalazine 500 mg Tablet 1,000 mg PO BIDPC 30 Days Qty: 120 3RF folic acid 1 mg Tablet 1 mg PO QDAY 30 Days Qty: 30 3RF Continued atorvastatin 40 mg tablet 40 mg PO HS Patient Comments: TAKE 1 TABLET BY MOUTH DAILY IN THE EVENING metformin 500 mg tablet 500 mg PO BID Patient Comments: TAKE 1 TABLET BY MOUTH TWICE DAILY carvedilol 12.5 mg tablet 12.5 mg PO BID Patient Comments: TAKE 1 TABLET BY MOUTH TWICE DAILY lidocaine [Lidocaine Pain Relief] 4 % adhesive patch,medicated 1 patch TOPICAL DAILY Patient Comments: APPLY 1 PATCH TO THE AFFECTED AREA DAILY FOR UP TO 12 HOURS NEEDED FOR PAIN loperamide 2 mg capsule 2 mg PO DAILY ibuprofen 800 mg tablet 800 mg PO TID PRN (Reason: Pain) Patient Comments: TAKE 1 TABLET BY MOUTH THREE TIMES DAILY WITH FOOD NEEDED FOR PAIN metolazone 5 mg tablet 5 mg PO BID Patient Comments: TAKE 1 TABLET BY MOUTH TWICE DAILY potassium chloride 10 mEq tablet extended release 10 meq PO DAILY Patient Comments: TAKE 1 TABLET BY MOUTH DAILY glimepiride 2 mg tablet 2 mg PO DAILY Patient Comments: TAKE 1 TABLET BY MOUTH TWICE DAILY furosemide 80 mg tablet 80 mg PO BID Patient Comments: TAKE 1 TABLET BY MOUTH TWICE DAILY docusate sodium 100 mg capsule 200 mg PO DAILY PRN (Reason: Constipation) Patient Comments: TAKE 2 CAPSULES BY MOUTH 1 TIME A DAY NEEDED FOR CONSTIPATION polyethylene glycol 3350 17 gram/dose powder 17 g PO DAILY ondansetron 4 mg tablet,disintegrating 4 mg PO TID ezetimibe 10 mg tablet 10 mg PO DAILY Patient Comments: TAKE 1 TABLET BY MOUTH DAILY budesonide-formoterol [Symbicort] 80-4.5 mcg/actuation HFA aerosol inhaler 2 inh INHALATION BID Patient Comments: USE 2 INHALATIONS TWICE DAILY DIRECTED Kerendia 20 mg tablet 20 mg PO DAILY Patient Comments: TAKE 1 TABLET BY MOUTH DAILY Discontinued Eliquis 5 mg tablet 5 mg PO DAILY Patient Comments: TAKE 1 TABLET BY MOUTH DAILY Referrals: Chelsea Hirsch, ZACKERY [Primary Care Provider] - Patient/Caregiver Discharge Instructions Other Discharge Activity Instructions:: 1) Follow up at [facility], [address] [place] [address]. Call [phone] to schedule appointment. 2) Wound care to left heel: May shower than change dressing once a day -Wash hands with soap and water. -Remove old dressing and cleanse site with wound cleanser spray and pat dry with gauze. -Wash hands again -Apply small amount of therahoney gel onto small peice of calcium algainte and place over open wound. Secure with foam dressing. -Change once a day and as needed for falling off. Elevate heels with boots or pillows while in bed to avoid wound touching any surfaces. IF needed to ambulate use ball of foot, not the heel. Education Materials: Nutrition for Wound Healing, Wound Care Dc, Preventing Surgical Site Infections Print Language: [place]se Stand Alone Forms: Ria Award Info., Patient Portal Info Letter Discharge Order Discharge Orders: Discharge (Routine); Ordered 03/20/24 Ordered By: Ernst Hoffmann Quality Discharge Quality Measures VTE prophylaxis MD Attestestation MD Attestation I reviewed labs, imaging, EKG, home medications and prior available records. Face to face evaluation was performed by me. I have personally examined the patient and discussed assessment and plan with the IM team. I reviewed the resident note and agree with the plan with exceptions as below. Lower GI bleed Acute anemia FAUZIA on CKD Atrial fibrillation with controlled ventricular rhythm Uncontrolled diabetes mellitus with hyperglycemia, type II Hypokalemia Debility Status post colonoscopy that showed diverticulitis and polyps status post resection. Follow-up biopsies with GI as outpatient Possible IBD shown on colonoscopy for which he was started on sulfasalazine and folic acid Monitor H&H Creatinine improved. Monitor kidney function. Replete potassium and follow-up BMP A1c 12.3. Continue insulin and Ozempic. Continue wound care. Follow-up echocardiogram for possible CHF: Showed preserved EF with no pertinent abnormalities Ordered home health for home PT Time spent is 40 minutes. More than 50% of the time was spent on patient education and coordination of care.
[2024-03-20] MEDS: INSULIN LISPRO (AdmeLOG) 1 UNIT/0.01 ML UNIT 5 UNIT SC (11:47)
--- NOTE | 2024-03-20 19:55 | ESPR_ITS ---
Documentation for date of: 03/20/24 Subjective Subjective Interval history: Late entry for the note Colonoscopy biopsy negative for microscopic colitis or inflammatory bowel disease Patient can be followed by the PCP Exam Vital Signs Temp Pulse Resp BP Pulse Ox O2 Del Method O2 Flow Rate 97.0 F 86 18 148/82 H 100 Room Air 1 03/20/24 16:00 03/20/24 16:00 03/20/24 16:00 03/20/24 16:00 03/20/24 16:00 03/20/24 16:00 03/20/24 08:00 Objective Labs 03/20/24 08:35 03/20/24 08:35 Labs: Laboratory Results - last 24 hr 03/20/24 08:35 WBC 7.9 RBC 5.02 Hgb 14.0 Hct 42.8 MCV 85 MCH 27.9 MCHC 32.7 RDW Std Deviation 44.3 H Plt Count 238 Neut % (Auto) 66 Lymph % (Auto) 23 [place] % (Auto) 9 Eos % (Auto) 1 Baso % (Auto) 1 Neut # (Auto) 5.2 Lymph # (Auto) 1.8 [place] # (Auto) 0.7 Eos # (Auto) 0.1 Baso # (Auto) 0.0 Immature Gran # (Auto) 0.03 H Absolute Nucleated RBC 0.00 Immature Gran % 0 Nucleated RBC % 0 Sodium 131 L Potassium 3.2 L Chloride 93 L Carbon Dioxide 32.3 H Anion Gap 6 L BUN 21 Creatinine 1.1 Estim Creat Clear Calc 95.6 eGFR > 60 BUN/Creatinine Ratio 19 Glucose 275 H Calculated Osmolality 275 Calcium 9.2 Corrected Calcium 9.2 Magnesium 2.1 Total Bilirubin 0.3 AST 16 ALT 21 Alkaline Phosphatase 97 Total Protein 6.6 Albumin 4.1 Globulin 2.5 Albumin/Globulin Ratio 1.6 Impressions Impression: # GI bleed stable # Colonic biopsies negative for inflammatory bowel disease As under HPI Assessment & Plan A&P Narrative # Hematochezia Plan Stool culture and sensitivity and stool C. difficile Clear liquid diet GoLytely prep Consent obtained for fiberoptic colonoscopy with possible biopsy possible therapeutic intervention under intravenous moderate sedation Recommend CT scan of the abdomen pelvis with contrast Will follow the patient Other medical problems include # Essential hypertension # Hyperlipidemia # Chronic atrial fibrillation # Diabetes mellitus type 2 # Congestive heart failure Thank you very much for the opportunity to participate in the care of this patient Time Spent With Patient Time: Total time spent is greater than 50% in coordination of care (as documented) at patient's floor/unit and/or counseling patient:
--- NOTE | 2024-03-22 15:51 | PC.CM ---
Patient has been accepted by [facility] and they will see patient on 03/24.
== END 2024-03-20 17:00 | disposition home health service (06) | DRG 254 ==
LOC: SERX 03:11 → SERHOLD 07:03 → S2NX 16:48 → S3NX 03-19 01:51
PROVIDERS: Specialist; Admitting Provider Student in an Organized Health Care Education/Training Program; Emergency Provider Emergency Medicine; PCP Nurse Practitioner Family; Visit Provider Student in an Organized Health Care Education/Training Program
PROC: 0DJD8ZZ Inspection of Lower Intestinal Tract, Via Natural or Artificial Opening Endoscopic (ICD-10-PCS; CPT 45378; principal; 2024-03-18 15:30)
DX: K63.5 Polyp of colon (principal); K57.31 Diverticulosis of large intestine without perforation or abscess with bleeding; K64.9 Unspecified hemorrhoids; E11.65 Type 2 diabetes mellitus with hyperglycemia; E78.5 Hyperlipidemia, unspecified; M48.00 Spinal stenosis, site unspecified; Z87.891 Personal history of nicotine dependence; N17.9 Acute kidney failure, unspecified; E87.1 Hypo-osmolality and hyponatremia; E87.8 Other disorders of electrolyte and fluid balance, not elsewhere classified; E87.3 Alkalosis; I50.9 Heart failure, unspecified; N18.9 Chronic kidney disease, unspecified; I13.0 Hypertensive heart and chronic kidney disease with heart failure and stage 1 through stage 4 chronic kidney disease, or unspecified chronic kidney disease; E11.621 Type 2 diabetes mellitus with foot ulcer; L97.509 Non-pressure chronic ulcer of other part of unspecified foot with unspecified severity; E87.6 Hypokalemia; E11.22 Type 2 diabetes mellitus with diabetic chronic kidney disease; I48.20 Chronic atrial fibrillation, unspecified; D63.1 Anemia in chronic kidney disease
CPT/HCPCS: 36415; 73630; 80053; 80061; 81001; 83036; 83735; 83880; 84100; 84443; 84484; 85025; 85610; 85730; 87015; 87045; 87046; 87400; 87493; 87811; 87899; 93005; 93225; 93306; 96361; 96372; 96374; 97162; 99285; J1200; J1815; J2250; J2405; J3010; J3480; J7030; J7040; A9270